=== PATIENT | male | born 1970 | race Native Hawaiian/Other Pacific Islander ===

== ENCOUNTER 2019-09-15 16:19 | Emergency (ER) | payer OTHER ==
[~2019-09-15] VITALS: Ht 177.8 cm; Wt 95.0 kg
[2019-09-15 16:52] VITALS: BP 144/66
== END 2019-09-15 17:36 | disposition home or self-care (01) ==
LOC: ER 16:19
DX: M25.462 Effusion, left knee (principal)
CPT/HCPCS: 73564; 99283

== ENCOUNTER 2020-06-10 15:06 | Emergency (ER) | payer OTHER ==
[~2020-06-10] VITALS: Ht 175.3 cm; Wt 90.0 kg
[2020-06-10 15:17] VITALS: BP 136/101
== END 2020-06-10 18:01 | disposition left against medical advice (07) ==
LOC: ER 15:07
DX: M79.605 Pain in left leg (principal); M79.604 Pain in right leg; Z53.21 Procedure and treatment not carried out due to patient leaving prior to being seen by health care provider

== ENCOUNTER 2020-06-24 16:21 | Emergency (ER) | payer SELFPAY ==
[~2020-06-24] VITALS: Ht 177.8 cm; Wt 100.0 kg
[2020-06-24 17:31] VITALS: BP 144/105
== END 2020-06-24 17:33 | disposition home or self-care (01) ==
LOC: ER 16:21
DX: R05 Cough (principal); I51.7 Cardiomegaly; F17.200 Nicotine dependence, unspecified, uncomplicated
CPT/HCPCS: 71045; 99283

== ENCOUNTER 2020-09-09 14:47 | Inpatient (IN) | payer MEDICAID ==
[~2020-09-09] VITALS: Ht 172.7 cm; Wt 90.5 kg
[~2020-09-09 14:47] MED LIST: etomidate 2mg/ml inj. ONE; rocuronium 10mg/ml inj IV ONE
[2020-09-09] MEDS ORDERED: TETanus/Pertussis (Acell)/Diphther VAC/PF (Tdap-Adult) 0.5ml syringe IMVAC ONE (15:35)
[2020-09-09 15:47] LABS: BASOPHILS % (AUTO) 0.1 % (0-1); EOSINOPHILS # (AUTO) 0.3 X10'3 (0-0.9); EOSINOPHILS % (AUTO) 1.2 % (0-6); HEMATOCRIT 37.6 % (42.0-52.0); HEMOGLOBIN 12.4 g/dl (14.0-17.9); LYMPHOCYTES # (AUTO) 0.9 X10'3 (1.1-4.8); LYMPHOCYTES % (AUTO) 3.9 % (21-51); MEAN CORPUSCULAR HEMOGLOBIN 27.5 PG (27.0-31.0); MEAN CORPUSCULAR HGB CONC 32.9 g/dL (33.0-36.5); MEAN CORPUSCULAR VOLUME 83.7 FL (78-98); MONOCYTES # (AUTO) 0.4 X10'3 (0-0.9); NEUTROPHILS # (AUTO) 21.1 X10'3 (1.8-7.7); NEUTROPHILS % (AUTO) 92.8 % (42-75); PLATELET COUNT 443 X10'3 (140-440); RED BLOOD COUNT 4.49 X10'6 (4.70-6.10); RED CELL DISTRIBUTION WIDTH 17.3 % (11.5-14.5); WHITE BLOOD COUNT 22.8 X10'3 (4.5-11.0)
[2020-09-09 16:01] LABS: PARTIAL THROMBOPLASTIN TIME 36 SECONDS (22-32)
[2020-09-09 16:03] LABS: ALANINE AMINOTRANSFERASE 45 U/L (12-78); ALBUMIN 2.1 G/DL (3.4-5.0); ALBUMIN/GLOBULIN RATIO 0.4 (1.1-1.5); ALKALINE PHOSPHATASE 238 IU/L (46-116); ANION GAP 11 (8-16); ASPARTATE AMINO TRANSFERASE 67 U/L (10-37); BILIRUBIN,TOTAL 3.1 MG/DL (0.1-1.0); BLOOD UREA NITROGEN 54 MG/DL (7-18); BUN/CREATININE RATIO 26.7 (5.4-32.0); CALCIUM 8.3 MG/DL (8.5-10.1); CHLORIDE 99 MMOL/L (99-107); CREATININE 2.02 MG/DL (0.60-1.10); GLUCOSE 130 MG/DL (70-104); POTASSIUM 4.6 MMOL/L (3.5-5.1); SODIUM 135 MMOL/L (135-145); TOTAL CARBON DIOXIDE 25.3 MMOL/L (24-32); TOTAL PROTEIN 7.4 G/DL (6.4-8.2); eGFR 35 ML/MIN
[2020-09-09 16:17] LABS: ANISOCYTOSIS 1+; PLATELET ESTIMATE INCREASED; TOTAL CELLS COUNTED 100
[2020-09-09 16:19] LABS: POLYCHROMASIA 1+
[2020-09-09 16:20] LABS: BURR CELLS 2+; ROULEAUX 1+; TARGET CELLS 1+; TOXIC GRANULATION 1+
[2020-09-09 16:22] LABS: SCHISTOCYTES 1+; TOXIC VACUOLATION FEW
[2020-09-09] MEDS ORDERED: vancomycin/NS 1 GM ADD-VANTAGE 250 ML IV ONE (16:40)
[2020-09-09] MEDS ORDERED: normal saline 1000ML IV soln IVB ONE (17:45)
--- NOTE | 2020-09-09 18:00 | NUR ---
PA AWARE OF PT'S HR AND BP. ORDERED AN EKG Addendum: 09/09/20 at 1801 by RWILCOX PT DENIES CP OR SOB
[2020-09-09] MEDS ORDERED: diltiazem 5mg/ml 5ml inj. IV ONE (18:45)
[2020-09-09] MEDS ORDERED: diltiazem-NS 100mg/100ml 125 ML IV PRN (19:10)
[2020-09-09] MEDS: diltiazem-NS 100mg/100ml 100 ML IV PRN (19:32)
--- NOTE | 2020-09-09 19:38 | NUR ---
PT SBP 98. HR 153 . MD AWARE. CARDIZEM BOLUS CANCELLED. Cardizem drip administered per protocol
[2020-09-09] MEDS ORDERED: potassium CL 10mEq/100ml bag 100 ML IV PRN ×2 (20:05)
[2020-09-09] MEDS ORDERED: magnesium hydroxide 30ml (MOM) UD suspension PO PRN (20:05)
[2020-09-09] MEDS ORDERED: magnesium 4gm in 100ml NS 100 ML IV PRN (20:05)
[2020-09-09] MEDS ORDERED: LORazepam 2 mg/ml vial IV PRN ×2 (20:05→22:15)
[2020-09-09] MEDS ORDERED: potassium Cl 20 mEq SR tablet PO PRN ×2 (20:05)
[2020-09-09] MEDS ORDERED: diltiazem-D5W 125mg/125ml 125 ML IV SCH (20:05)
[2020-09-09] MEDS ORDERED: HYDROcodone/acetaminophen 5mg/325mg tablet PO PRN (20:05)
[2020-09-09] MEDS ORDERED: mag hydrox/Alum hydrox/simeth 30ml oral suspension PO PRN (20:05)
[2020-09-09] MEDS ORDERED: normal saline 1000ml 1,000 ML IV SCH (20:05)
[2020-09-09] MEDS ORDERED: LORazepam 1 MG tablet PO PRN (20:05)
[2020-09-09] MEDS ORDERED: ondansetron/PF 4mg/2ml inj IV PRN (20:05)
[2020-09-09] MEDS ORDERED: morphine 2 MG/ML inj. syringe IV PRN (20:05)
[2020-09-09] MEDS ORDERED: magnesium 2GM in 50ml NS 50 ML IV PRN (20:05)
[2020-09-09] MEDS ORDERED: magnesium Cl slow-release 64mg tablet PO PRN (20:05)
[2020-09-09] MEDS ORDERED: acetaminophen 325mg tablet PO PRN ×2 (20:05)
--- NOTE | 2020-09-09 20:39 | NUR ---
relieved RN for break, pt is resting quietly on gurney, resp even and unlabored, increased cardizem gtt to 15mg/hr, HR is 130s to 150s on the monitor
[2020-09-09 21:00] VITALS: BP 134/117
[2020-09-09] MEDS ORDERED: temazepam 15mg capsule PO PRN (21:00)
[2020-09-09] MEDS ORDERED: glucagon, human recombinant 1mg kit SUBCUT PRN (21:10)
[2020-09-09] MEDS ORDERED: dextrose ORAL solution 15 GM/59 ML bottle PO PRN ×2 (21:10)
[2020-09-09] MEDS ORDERED: insulin Lispro (HumaLOG) vial - multi-dose SQ SCH (21:10)
[2020-09-09] MEDS ORDERED: dextrose 50%-water 50ml dispensing syringe IV PRN ×2 (21:10)
[2020-09-09] MEDS ORDERED: MESSAGE TO PHARMACY PO ONE (21:10)
--- NOTE | 2020-09-09 22:10 | NUR ---
PAGER ID: [phone] MESSAGE: [id number] Magdaleno You: Patient very impulsive and pulling on everything. Not safe at all. Can I have order for restraints please? Patient is already in sitter room and cannot handle. Stella NAVARRO [id number]
[2020-09-09] MEDS ORDERED: haloperidol lactate 5mg/ml inj IM PRN (22:15)
[2020-09-09] MEDS ORDERED: thiamine 100mg/ml 2ml inj. IV ONE (22:15)
[2020-09-09] MEDS ORDERED: haloperidol 5mg tablet PO PRN (22:15)
[2020-09-09 23:00] VITALS: BP 128/95
[2020-09-09] MEDS ORDERED: thiamine inj. 100 MG in normal saline 100ml IV soln 100 ML IV ONE (23:00)
[2020-09-10] VITALS (9 sets, daily range): BP systolic 97–130; BP diastolic 62–95
--- NOTE | 2020-09-10 00:15 | NUR ---
FAMILY CONTACT Concepción (MOM) lives in [place] , cell Chante Borden (aunt?) in [place]: [phone]
--- NOTE | 2020-09-10 00:20 | NUR ---
Allergy to Ativan? Ativan was given in ED, ED RN stated that patients started to get more confused and agitated after. Patient's face had progressively gotten more puffy and edematous. Family called in for an update, I asked if the patient had any allergies; patient's family member stated that he had taken an Ativan a couple weeks ago and remembered that his face was more puffy than usual. I relayed information to MD to proceed with possible Benadryl administration. Ativan to be discontinued as well.
--- NOTE | 2020-09-10 00:28 | NUR ---
promotional table spacer PAGER ID: [phone] MESSAGE: [id number] Magdaleno You: Possible Reaction to Ativan need an order for Benadryl. Ativan was given in ER. Family member now states that he often gets swollen in the face and body from Ativan. Stella NAVARRO [id number]
[2020-09-10] MEDS ORDERED: methylPREDNISolone sod succ 125mg/2ml vial IV ONE ×2 (00:35→21:35)
[2020-09-10] MEDS ORDERED: diphenhydrAMINE 50 mg/ml inj IV ONE (00:35)
[2020-09-10] MEDS ORDERED: cetirizine 10mg tablet PO ONE (00:35)
--- NOTE | 2020-09-10 01:24 | NUR ---
PAGER ID: [phone] MESSAGE: [id number] Magdaleno Avelino: Unable to swallow or cough on command. unable to give Zyrtec. Patient's O2 dropped to 80s, now on 2 L. Want to order anything else? Stella NAVARRO 2022
[2020-09-10] MEDS: diltiazem-NS 100mg/100ml 100 ML IV PRN (01:37)
[2020-09-10 01:51] LABS: ABG HCO3 17.6 mmol/L (22.0-26.0); ABG OXYGEN SATURATION 87.5 % (94-97); ABG PO2 (T) 60.6 mmHg (75.0-100.0); ALLEN'S TEST POSITIVE; FCOHb 0.3 % (0.0-3.9); FMetHb 0.3 % (0.0-1.5); PATIENT TEMPERATURE 36.6; TOTAL HEMOGLOBIN 12.6 G/dl (14.0-18.0)
--- NOTE | 2020-09-10 02:28 | NUR ---
PAGER ID: [phone] MESSAGE: [id number] Magdaleno You: Critical blood sugar 35, D50 given, now an hour later and the blood sugar is dropping again. Now 88. Can we order D5 in NS? or something else? Stella NAVARRO 0273
[2020-09-10] MEDS: dextrose 5%-normal saline 1,000 ML IV SCH ×2 (02:49→16:27)
[2020-09-10] MEDS ORDERED: vancomycin/NS 1 GM ADD-VANTAGE 250 ML IV SCH (05:00)
--- NOTE | 2020-09-10 07:01 | NUR ---
Patient in room PCU 3014. I have received report from Lyndsey NAVARRO by telephone from and had the opportunity to ask questions and assume patient care. Addendum: 09/10/20 at 0702 by Stella Coronado RN Report received at 2100
--- NOTE | 2020-09-10 07:02 | NUR ---
Problems reprioritized. Patient report given, questions answered & plan of care reviewed with Yasmeen NAVARRO.
--- NOTE | 2020-09-10 07:15 | NUR ---
Orientee documentation: I have reviewed and agree with all interventions, assessments performed and documented by Brandee Jacobs RN.
--- NOTE | 2020-09-10 07:16 | NUR ---
Orientee documentation: I have reviewed and agree with all interventions, assessments performed and documented by Willow NAVARRO.
--- NOTE | 2020-09-10 07:16 | NUR ---
Patient in room PCU 3014. I have received report from RAMON Zepeda and had the opportunity to ask questions and assume patient care. Patient asleep during report, stable vital signs.
[2020-09-10 07:24] LABS: BASOPHILS % (AUTO) 0.1 % (0-1); EOSINOPHILS # (AUTO) 0.1 X10'3 (0-0.9); EOSINOPHILS % (AUTO) 0.2 % (0-6); HEMATOCRIT 37.9 % (42.0-52.0); HEMOGLOBIN 12.2 g/dl (14.0-17.9); LYMPHOCYTES # (AUTO) 0.7 X10'3 (1.1-4.8); LYMPHOCYTES % (AUTO) 2.5 % (21-51); MEAN CORPUSCULAR HEMOGLOBIN 27.1 PG (27.0-31.0); MEAN CORPUSCULAR HGB CONC 32.1 g/dL (33.0-36.5); MEAN CORPUSCULAR VOLUME 84.5 FL (78-98); MEAN PLATELET VOLUME 8.2 FL (7.4-10.4); MONOCYTES # (AUTO) 0.2 X10'3 (0-0.9); MONOCYTES % (AUTO) 0.8 % (2-12); NEUTROPHILS # (AUTO) 28.1 X10'3 (1.8-7.7); NEUTROPHILS % (AUTO) 96.4 % (42-75); PLATELET COUNT 434 X10'3 (140-440); RED BLOOD COUNT 4.49 X10'6 (4.70-6.10); RED CELL DISTRIBUTION WIDTH 17.5 % (11.5-14.5)
[2020-09-10 07:31] LABS: WHITE BLOOD COUNT 29.2 X10'3 (4.5-11.0)
--- NOTE | 2020-09-10 07:36 | NUR ---
Page sent to Dr. Jimenez PAGER ID: [phone] MESSAGE: [id number] Magdaleno You Critical WBC of .2, on Emily Adan RN #[id number]
[2020-09-10] MEDS: K and/or MAG REPLACEMENT MC SCH ×2 (08:00→19:57)
[2020-09-10] MEDS: heparin, porcine 5000 units/ml vial SQ SCH ×2 (08:07→19:59)
[2020-09-10 08:35] LABS: ANISOCYTOSIS 1+; PLATELET ESTIMATE NORMAL; TOTAL CELLS COUNTED 100
[2020-09-10 09:31] LABS: ALANINE AMINOTRANSFERASE 52 U/L (12-78); ALBUMIN 2.1 G/DL (3.4-5.0); ALBUMIN/GLOBULIN RATIO 0.4 (1.1-1.5); ALKALINE PHOSPHATASE 246 IU/L (46-116); AMYLASE 33 U/L (25-115); ANION GAP 14 (8-16); ASPARTATE AMINO TRANSFERASE 102 U/L (10-37); BILIRUBIN,TOTAL 3.7 MG/DL (0.1-1.0); BLOOD UREA NITROGEN 58 MG/DL (7-18); BUN/CREATININE RATIO 27.4 (5.4-32.0); CALCIUM 7.9 MG/DL (8.5-10.1); CHLORIDE 100 MMOL/L (99-107); CREATININE 2.12 MG/DL (0.60-1.10); GLUCOSE 98 MG/DL (70-104); HDL CHOLESTEROL 9 MG/DL (35-60); LDL CHOLESTEROL 35 MG/DL (50-100); MAGNESIUM 2.6 MG/DL (1.5-2.4); POTASSIUM 4.8 MMOL/L (3.5-5.1); SODIUM 136 MMOL/L (135-145); TOTAL CARBON DIOXIDE 22.3 MMOL/L (24-32); TOTAL PROTEIN 7.8 G/DL (6.4-8.2); TRIGLYCERIDES 66 MG/DL (20-135); eGFR 33 ML/MIN
[2020-09-10 09:48] LABS: CHOLESTEROL < 50 MG/DL (0-200)
[2020-09-10] MEDS: haloperidol lactate 5mg/ml inj IM PRN ×2 (10:39→19:59)
--- NOTE | 2020-09-10 12:00 | NUR ---
at bedside, reviewed status, labs and urine output. 14 FR coude placed successfully. UA/Drug screen sent. Received new orders to stop Cardizem and obtain an ammonia level.
[2020-09-10 13:21] LABS: CLARITY,URINE CLOUDY (Clear); COLOR,URINE AMBER (Yellow); GLUCOSE, URINE NEGATIVE (Neg); KETONES,URINE NEGATIVE (Neg); LEUKOCYTE ESTERASE ,URINE NEGATIVE (Neg); NITRITES, URINE NEGATIVE (Neg); OCCULT BLOOD,URINE TRACE-LYSED (Neg); PROTEIN,URINE 30 mg/dl (Neg)
[2020-09-10 13:22] LABS: UA COLLECTION TYPE FOLEY CATH
[2020-09-10 13:28] LABS: URINE AMPHETAMINE SCREEN POSITIVE (Neg); URINE BARBITUATE SCREEN NEGATIVE (Neg); URINE BENZODIAZEPINES SCREEN NEGATIVE (Neg); URINE CANNABINOID SCREEN NEGATIVE (Neg); URINE COCAINE SCREEN NEGATIVE (Neg); URINE METHADONE SCREEN NEGATIVE (Neg); URINE OPIATE SCREEN NEGATIVE (Neg); URINE PHENCYCLIDINE SCREEN NEGATIVE (Neg)
[2020-09-10 13:30] LABS: HYALINE CASTS >30 /LPF (NEGATIVE)
[2020-09-10 13:35] LABS: FINE GRANULAR CAST 0-3 /LPF (NEGATIVE); SQUAMOUS EPITHELIAL CELL,UR FEW /LPF (FEW)
[2020-09-10 13:36] LABS: CAL OXALATE CRYSTALS FEW /HPF (NEGATIVE); MUCUS STRANDS MODERATE /LPF (Neg); TRANSITIONAL EPI CELLS,URINE FEW /HPF
[2020-09-10 13:37] LABS: RBC,URINE 0-2 /HPF (0-2); RENAL CELLS, URINE FEW /HPF; WBC,URINE 0-4 /HPF (0-4)
[2020-09-10 13:45] LABS: AMORPHOUS URATES 1+; BACTERIA,URINE NONE SEEN /HPF (Neg)
--- NOTE | 2020-09-10 13:55 | NUR ---
PAGER ID: [phone] MESSAGE: [id number] Magdaleno You. Ammonia WNL. Gf stated probable meth use. Got a list of home meds. Also, has technical planner Zonia. Do you want echo? Harini NAVARRO 7043
[2020-09-10] MEDS ORDERED: haloperidol lactate 5mg/ml inj IM ONE (14:45)
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
[2020-09-10] MEDS: piperacillin/tazo 3.375gm/50ml 50 ML IV SCH (16:26)
--- NOTE | 2020-09-10 18:23 | NUR ---
Patient in room PCU 3023. I have received report from RAMON Schuler and RAMON Irvin and had the opportunity to ask questions and assume patient care.
--- NOTE | 2020-09-10 18:24 | NUR ---
Problems reprioritized. Patient report given, questions answered & plan of care reviewed with RAMON Ferrara. Patient in bed with stable vitals at report.
--- NOTE | 2020-09-10 18:51 | NUR ---
Orientee documentation: I have reviewed and agree with all interventions, assessments performed and documented by Brandee Jacobs RN.
--- NOTE | 2020-09-10 18:52 | NUR ---
Orientee documentation: I have reviewed and agree with all interventions, assessments performed and documented by Brandee Jacobs RN.
[2020-09-10] MEDS ORDERED: furosemide 40mg/4ml inj IV SCH (20:00)
[2020-09-10] MEDS: nystatin 15 GM powder TP SCH (20:00)
[2020-09-10] MEDS: atorvastatin 20mg tablet PO SCH (20:00)
[2020-09-10] MEDS: insulin glargine (Lantus) pen - multi-dose SQ SCH (21:00)
[2020-09-10] MEDS ORDERED: chlordiazePOXIDE 25mg capsule PO PRN (21:45)
[2020-09-11] VITALS (17 sets, daily range): BP systolic 12–138; BP diastolic 71–96
[2020-09-11] MEDS: ipratropium/albuterol 3ml nebule NEB SCH ×7 (00:28→23:09)
[2020-09-11] MEDS: piperacillin/tazo 3.375gm/50ml 50 ML IV SCH ×3 (00:35→15:46)
[2020-09-11] MEDS: methylPREDNISolone sod succ 125mg/2ml vial IV SCH ×4 (01:46→19:58)
[2020-09-11] MEDS: vancomycin/NS 1 GM ADD-VANTAGE 250 ML IV SCH (05:19)
[2020-09-11] MEDS: dextrose 5%-normal saline 1,000 ML IV SCH ×2 (05:19→23:06)
--- NOTE | 2020-09-11 06:09 | NUR ---
Problems reprioritized. Patient report given, questions answered & plan of care reviewed with RAMON Schuler and RAMON Irvin.
--- NOTE | 2020-09-11 07:18 | NUR ---
Patient in room PCU 3023. I have received report from RAMON Ferrara and had the opportunity to ask questions and assume patient care.
--- NOTE | 2020-09-11 07:18 | NUR ---
PAGER ID: [phone] MESSAGE: [id number] Magdaleno You HR anywhere from 30's-160's with frequent pauses. Sustaining 160's currently. Harini NAVARRO [id number]
--- NOTE | 2020-09-11 07:42 | NUR ---
PAGER ID: [phone] MESSAGE: [id number] Magdaleno You - is now 74/48, HR 160's. Harini NAVARRO [id number]
[2020-09-11] MEDS ORDERED: normal saline 500ml IV soln 500 ML IV ONE (07:45)
[2020-09-11] MEDS: heparin, porcine 5000 units/ml vial SQ SCH ×2 (07:46→19:57)
--- NOTE | 2020-09-11 07:58 | NUR ---
PAGER ID: [phone] MESSAGE: [id number] Magdaleno You, I am calling a rapid. BP dropping, restless and thrashing around. Harini NAVARRO 2938
[2020-09-11] MEDS ORDERED: metoprolol tartrate 25mg tablet PO SCH (08:00)
[2020-09-11] MEDS: atorvastatin 20mg tablet PO SCH (08:00)
[2020-09-11] MEDS ORDERED: furosemide 40mg/4ml inj IV SCH (08:00)
[2020-09-11] MEDS: K and/or MAG REPLACEMENT MC SCH ×2 (08:00→20:00)
[2020-09-11] MEDS ORDERED: lisinopril 5mg tablet PO SCH (08:00)
[2020-09-11] MEDS: nystatin 15 GM powder TP SCH ×2 (08:00→19:58)
--- NOTE | 2020-09-11 08:13 | NUR ---
Paged Dr Jimenez PAGER ID: [phone] MESSAGE: Julissa WOODARD. Mellisa Otoole [id number]. FYI patient is currently being transferred to CICU post rapid. Primary RN Harini transferring pt at this time
[2020-09-11] MEDS ORDERED: MIDAZolam 5mg/ml 2ml vial ONE ×2 (08:17→08:21)
[2020-09-11] MEDS ORDERED: NORepinephrine 8mg/ 250ml NS 250 ML IV ONE (08:30)
--- NOTE | 2020-09-11 08:42 | NUR ---
PAGER ID: [phone] MESSAGE: [id number] Magdaleno You intubated and in ICU, Harini NAVARRO 4728
--- NOTE | 2020-09-11 08:43 | NUR ---
Upon assessment, HR is 160's, sp02 91%, BP 74/48 manually. Patient was thrashing around, grunting and frothing from the mouth. Patients cognition is unchanged from prior day, responds to verbal stimuli. MD notified immediately with orders to bolus 500 ml's. Bolus initiated, reassessment of BP 5 minutes after initial bolus and BP decreased with a MAP of 40. RR called. Patient taken to ICU and intubated at bedside. Dr. Jimenez alerted. Bedside report given to ICU charge Charissa and Primary nurse Marge.
[2020-09-11] MEDS ORDERED: amiodarone 150mg/dext, iso-os 100 ML IV ONE (08:50)
--- NOTE | 2020-09-11 08:53 | NUR ---
Called to update patients contacts of change of condition, left a message for his girlfriend Chante and his mom Solomon.
[2020-09-11] MEDS ORDERED: FENTANYL-0.9 % NACL/PF 100 ML IV PRN (08:55)
[2020-09-11] MEDS ORDERED: midazolam 100mg in NS 100ml 100 ML IV PRN (08:55)
[2020-09-11] MEDS ORDERED: midazolam 100mg in NS 100ml 100 ML IV ONE (08:56)
[2020-09-11] MEDS ORDERED: FENTANYL-0.9 % NACL/PF 100 ML ONE (08:56)
[2020-09-11 09:16] LABS: ABG BASE EXCESS -7.8 mmol/L (-2.0-2.0); ABG HCO3 19.4 mmol/L (22.0-26.0); ABG OXYGEN SATURATION 98.3 % (94-97); ABG PCO2 (T) 43.6 mmHg (35.0-48.0); ABG PO2 (T) 133.6 mmHg (75.0-100.0); FCOHb 0.2 % (0.0-3.9); FMetHb 0.4 % (0.0-1.5); FO2Hb 97.7 % (94-97); PATIENT TEMPERATURE 35.8; PEEP 5 cm H2O; RESPIRATORY RATE 18 b/min; TIDAL VOLUME 529 mL; TOTAL HEMOGLOBIN 14.5 G/dl (14.0-18.0)
[2020-09-11 09:27] LABS: BASOPHILS # (AUTO) 0.1 X10'3 (0-0.2); BASOPHILS % (AUTO) 0.2 % (0-1); EOSINOPHILS % (AUTO) 0.1 % (0-6); HEMATOCRIT 41.9 % (42.0-52.0); HEMOGLOBIN 13.1 g/dl (14.0-17.9); LYMPHOCYTES # (AUTO) 0.9 X10'3 (1.1-4.8); LYMPHOCYTES % (AUTO) 3.1 % (21-51); MEAN CORPUSCULAR HEMOGLOBIN 26.4 PG (27.0-31.0); MEAN CORPUSCULAR HGB CONC 31.3 g/dL (33.0-36.5); MEAN CORPUSCULAR VOLUME 84.4 FL (78-98); MEAN PLATELET VOLUME 8.1 FL (7.4-10.4); MONOCYTES # (AUTO) 0.4 X10'3 (0-0.9); MONOCYTES % (AUTO) 1.4 % (2-12); NEUTROPHILS # (AUTO) 27.1 X10'3 (1.8-7.7); NEUTROPHILS % (AUTO) 95.2 % (42-75); PLATELET COUNT 548 X10'3 (140-440); RED BLOOD COUNT 4.96 X10'6 (4.70-6.10); RED CELL DISTRIBUTION WIDTH 18.1 % (11.5-14.5)
[2020-09-11 09:28] LABS: WHITE BLOOD COUNT 28.5 X10'3 (4.5-11.0)
[2020-09-11 09:44] LABS: ALANINE AMINOTRANSFERASE 49 U/L (12-78); ALBUMIN/GLOBULIN RATIO 0.3 (1.1-1.5); ALKALINE PHOSPHATASE 208 IU/L (46-116); AMYLASE 49 U/L (25-115); ANION GAP 14 (8-16); ASPARTATE AMINO TRANSFERASE 54 U/L (10-37); BILIRUBIN,TOTAL 2.4 MG/DL (0.1-1.0); BLOOD UREA NITROGEN 69 MG/DL (7-18); BUN/CREATININE RATIO 40.4 (5.4-32.0); CALCIUM 7.6 MG/DL (8.5-10.1); CHLORIDE 104 MMOL/L (99-107); CREATININE 1.71 MG/DL (0.60-1.10); GLUCOSE 193 MG/DL (70-104); MAGNESIUM 2.8 MG/DL (1.5-2.4); PHOSPHORUS 6.8 MG/DL (2.3-4.5); POTASSIUM 4.7 MMOL/L (3.5-5.1); SODIUM 139 MMOL/L (135-145); TOTAL CARBON DIOXIDE 20.6 MMOL/L (24-32); TOTAL PROTEIN 7.8 G/DL (6.4-8.2); eGFR 42 ML/MIN
--- NOTE | 2020-09-11 09:57 | NUR ---
Problems reprioritized. Patient report given, questions answered & plan of care reviewed with RAMON Bird.
[2020-09-11 10:00] LABS: ANISOCYTOSIS 2+; NUCLEATED RED BLOOD CELLS 1 /100WBC (0-0); PLATELET ESTIMATE INCREASED; TOTAL CELLS COUNTED 100
[2020-09-11] MEDS ORDERED: ATOR40TA72 PO (10:48)
[2020-09-11] MEDS ORDERED: LISI-604 PO (10:48)
[2020-09-11] MEDS ORDERED: SPIR25TA5 PO (10:48)
[2020-09-11] MEDS ORDERED: METO-395 PO (10:48)
[2020-09-11] MEDS: FENTANYL-0.9 % NACL/PF 100 ML IV PRN ×2 (10:57→23:41)
[2020-09-11] MEDS: midazolam 100mg in NS 100ml 100 ML IV PRN ×2 (10:57→15:46)
[2020-09-11] MEDS: NORepinephrine 8mg/ 250ml NS 250 ML IV SCH ×3 (11:00→19:26)
[2020-09-11] MEDS: thiamine inj. 100 MG, MVI, adult No.4 with vit. K 10 ML in dextrose 5% water 500ml 489 ML IV SCH ×6 (11:11→12:11)
[2020-09-11] MEDS: amiodarone/D5 360MG/200ML BAG 200 ML IV SCH ×3 (11:11→21:08)
--- NOTE | 2020-09-11 13:01 | NUR ---
TF consult: Pt s/p rapid response this morning, now intubated. OG tube in place per RN. Recommendations below were calculated using IBW +10% given morbid obesity. Pt with hx CHF, with a low EF per RN at critical care rounds, water flush recommendations per MD. Pt receiving banana bag for EtOH hx. Will continue to follow closely and make recommendations as appropriate. Recs: 1) Continuous TF using Vital High Protein with goal rate of 80 mL/hr. To begin at 20 mL/hr and advance by 20 mL Q8H as tolerated to goal rate. To provide: 1920 mL total volume/day, 1920 kcal, 168 g protein, and 1605 mL water 2) Additional water flush per MD 3) Prealbumin q Thursday/, daily weights 4) Continue banana bag given EtOH hx 5) PO diet advancement to heart healthy CHO controlled as medically indicated following extubation 6) DM and protein educations once stable Addendum: 09/11/20 at [address] Amended: Links added.
[2020-09-11] MEDS ORDERED: ondansetron 4mg rapidly disintigrating tab PO PRN (14:05)
[2020-09-11] MEDS ORDERED: acetaminophen 325mg/10.15ml oral unit dose solution OGT PRN ×2 (14:47→14:48)
[2020-09-11] MEDS ORDERED: chlordiazePOXIDE 25mg capsule OGT PRN (14:49)
[2020-09-11] MEDS ORDERED: dextrose ORAL solution 15 GM/59 ML bottle OGT PRN ×2 (14:50)
[2020-09-11] MEDS ORDERED: mag hydrox/Alum hydrox/simeth 30ml oral suspension OGT PRN (14:50)
[2020-09-11] MEDS ORDERED: magnesium hydroxide 30ml (MOM) UD suspension OGT PRN (14:51)
[2020-09-11] MEDS ORDERED: ondansetron 4mg rapidly disintigrating tab OGT PRN (14:52)
[2020-09-11] MEDS ORDERED: POTASSIUM BICARB 20meq eff tab 20 MEQ TABLET.EFF OGT PRN ×2 (14:52→14:53)
[2020-09-11] MEDS ORDERED: temazepam 15mg capsule OGT PRN (14:53)
[2020-09-11] MEDS ORDERED: aspirin 81mg tab.chew OGT ONE (16:25)
[2020-09-11 16:43] LABS: HIV ANTIBODY 1&2 RAPID NON-REACTIVE (Neg)
--- NOTE | 2020-09-11 17:00 | NUR ---
PER DR CRYSTAL PERKINS EMERGENT PICC LINE PTS IJ CENTRAL LINE WAS ACCIDENTALLY PULLED OUT DURING TRANSFER TO CT TABLE. PICC PLACED EMERGENTLY, CHEST X-RAY CONFIRMATION. Wayne MEJIA PICC RAMON REF: [id number] LOT: [id number] EXP: 08/15/2021
--- NOTE | 2020-09-11 18:30 | NUR ---
Patient in room CICU 2009. I have received report from RAMON Bird and had the opportunity to ask questions and assume patient care.
--- NOTE | 2020-09-11 18:32 | NUR ---
Problems reprioritized. Patient report given, questions answered & plan of care reviewed with RAMON Arias.
[2020-09-11] MEDS: lactobacillus rhamnosus 10,000 MMU CELLS/CAPSULE OGT SCH (19:58)
[2020-09-11] MEDS: insulin regular, human U-100 3ml vial - multi-dose SQ SCH (20:38)
[2020-09-11] MEDS: insulin glargine (Lantus) pen - multi-dose SQ SCH (21:29)
[2020-09-11] MEDS ORDERED: LORazepam 2 mg/ml vial IV PRN (22:15)
[2020-09-11] MEDS ORDERED: LORazepam 1 MG tablet PO PRN (22:15)
--- NOTE | 2020-09-11 23:07 | NUR ---
Notified Dwayne Calhoun NP that patient is not making urine. Informed that patient has CHF with EF of 25%. Patient with CVP of 25. Order of lasix was received. Will give and continue to monitor.
[2020-09-11] MEDS ORDERED: furosemide 40mg/4ml inj IV ONE (23:10)
[2020-09-12] VITALS (24 sets, daily range): BP systolic 99–115; BP diastolic 76–89
[2020-09-12] MEDS: piperacillin/tazo 3.375gm/50ml 50 ML IV SCH ×3 (00:27→17:12)
[2020-09-12] MEDS: methylPREDNISolone sod succ 125mg/2ml vial IV SCH ×4 (01:43→20:42)
[2020-09-12] MEDS: insulin regular, human U-100 3ml vial - multi-dose SQ SCH ×4 (01:48→20:52)
[2020-09-12 02:24] LABS: BASOPHILS # (AUTO) 0.1 X10'3 (0-0.2); BASOPHILS % (AUTO) 0.4 % (0-1); EOSINOPHILS % (AUTO) 0 % (0-6); HEMATOCRIT 40.8 % (42.0-52.0); LYMPHOCYTES # (AUTO) 0.6 X10'3 (1.1-4.8); LYMPHOCYTES % (AUTO) 2.9 % (21-51); MEAN CORPUSCULAR HGB CONC 31.8 g/dL (33.0-36.5); MEAN CORPUSCULAR VOLUME 84.8 FL (78-98); MEAN PLATELET VOLUME 8.3 FL (7.4-10.4); MONOCYTES # (AUTO) 0.6 X10'3 (0-0.9); MONOCYTES % (AUTO) 2.8 % (2-12); NEUTROPHILS # (AUTO) 19.5 X10'3 (1.8-7.7); NEUTROPHILS % (AUTO) 93.9 % (42-75); PLATELET COUNT 555 X10'3 (140-440); RED BLOOD COUNT 4.81 X10'6 (4.70-6.10); RED CELL DISTRIBUTION WIDTH 17.5 % (11.5-14.5); WHITE BLOOD COUNT 20.8 X10'3 (4.5-11.0)
[2020-09-12 02:40] LABS: CHLORIDE 104 MMOL/L (99-107); GLUCOSE 212 MG/DL (70-104); POTASSIUM 4.8 MMOL/L (3.5-5.1); SODIUM 137 MMOL/L (135-145)
[2020-09-12 02:41] LABS: ALANINE AMINOTRANSFERASE 41 U/L (12-78); ALBUMIN 1.9 G/DL (3.4-5.0); ALBUMIN/GLOBULIN RATIO 0.3 (1.1-1.5); ALKALINE PHOSPHATASE 188 IU/L (46-116); AMYLASE 539 U/L (25-115); ANION GAP 10 (8-16); ASPARTATE AMINO TRANSFERASE 33 U/L (10-37); BILIRUBIN,TOTAL 1.8 MG/DL (0.1-1.0); BLOOD UREA NITROGEN 77 MG/DL (7-18); BUN/CREATININE RATIO 41.2 (5.4-32.0); CALCIUM 7.3 MG/DL (8.5-10.1); CREATININE 1.87 MG/DL (0.60-1.10); PHOSPHORUS 6.5 MG/DL (2.3-4.5); TOTAL PROTEIN 7.7 G/DL (6.4-8.2); eGFR 38 ML/MIN
[2020-09-12] MEDS: ipratropium/albuterol 3ml nebule NEB SCH ×6 (02:52→23:10)
[2020-09-12] MEDS: amiodarone/D5 360MG/200ML BAG 200 ML IV SCH ×4 (03:47→21:24)
[2020-09-12] MEDS: NORepinephrine 8mg/ 250ml NS 250 ML IV SCH (03:48)
[2020-09-12 04:50] LABS: ABG BASE EXCESS -4.8 mmol/L (-2.0-2.0); ABG HCO3 19.6 mmol/L (22.0-26.0); ABG PCO2 (T) 33.8 mmHg (35.0-48.0); ABG PO2 (T) 115.3 mmHg (75.0-100.0); FCOHb 0.1 % (0.0-3.9); FMetHb 0.4 % (0.0-1.5); FO2Hb 97.5 % (94-97); PATIENT TEMPERATURE 36.6; PEEP 5 cm H2O; RESPIRATORY RATE 20 b/min; TIDAL VOLUME 500 mL; TOTAL HEMOGLOBIN 14.1 G/dl (14.0-18.0)
[2020-09-12] MEDS: vancomycin/NS 1 GM ADD-VANTAGE 250 ML IV SCH (05:23)
--- NOTE | 2020-09-12 06:44 | NUR ---
Problems reprioritized. Patient report given, questions answered & plan of care reviewed with RAMON Mann.
[2020-09-12] MEDS: lactobacillus rhamnosus 10,000 MMU CELLS/CAPSULE OGT SCH ×2 (07:52→20:41)
[2020-09-12] MEDS: thiamine inj. 100 MG, MVI, adult No.4 with vit. K 10 ML in dextrose 5% water 500ml 489 ML IV SCH ×3 (07:52)
[2020-09-12] MEDS: atorvastatin 20mg tablet OGT SCH (07:53)
[2020-09-12] MEDS: nystatin 15 GM powder TP SCH ×2 (07:53→20:42)
[2020-09-12] MEDS: heparin, porcine 5000 units/ml vial SQ SCH ×2 (07:53→20:39)
[2020-09-12] MEDS: metoprolol tartrate 25mg tablet OGT SCH (07:53)
[2020-09-12] MEDS: lisinopril 5mg tablet OGT SCH (08:00)
--- NOTE | 2020-09-12 08:00 | NUR ---
CHEST X-RAY READ SHOWS PICC IN RIGHT ATRIUM. LORI RN NOTIFIED TO PLEASE PULL LINE BACK 3 CM. Wayne MEJIA PICC RAMON
[2020-09-12] MEDS: K and/or MAG REPLACEMENT MC SCH ×2 (09:04→20:00)
[2020-09-12] MEDS ORDERED: furosemide inj 100 ML IV SCH ×2 (10:15→18:45)
[2020-09-12 11:22] LABS: HBSAG SCREEN Negative (Negative); HEP A AB, IGM Negative (Negative); HEPATITIS C ANTIBODY 3.1 s/co ratio (0.0-0.9)
[2020-09-12] MEDS: furosemide 1,000 MG in NS 250ml IV soln IV SCH ×2 (11:23→20:08)
[2020-09-12] MEDS: mineral oil/petrolatum ophthal oint EACHEYE SCH ×2 (14:46→20:42)
--- NOTE | 2020-09-12 18:30 | NUR ---
Patient in room CICU 2009. I have received report from RAMON Mann and had the opportunity to ask questions and assume patient care.
[2020-09-12] MEDS: midazolam 100mg in NS 100ml 100 ML IV PRN (18:56)
[2020-09-12] MEDS: dextrose 5%-normal saline 1,000 ML IV SCH (19:06)
--- NOTE | 2020-09-12 19:23 | NUR ---
Problems reprioritized. Patient report given, questions answered & plan of care reviewed with Juana NAVARRO. Dr. Kern called regarding lasix drip being cancelled this am after it was started. After investigation it looks as if anjel cancelled lasix drip soon after it was started. Dr. Kern did not cancel the lasix gt and it was re ordered.
[2020-09-12] MEDS: insulin glargine (Lantus) pen - multi-dose SQ SCH (20:54)
[2020-09-12] MEDS ORDERED: [UNRECOGNIZED DRUG - REMARK] IV SCH ×3 (23:38)
[2020-09-13] VITALS (25 sets, daily range): BP systolic 94–113; BP diastolic 61–84
[2020-09-13] MEDS: piperacillin/tazo 3.375gm/50ml 50 ML IV SCH ×4 (00:24→23:49)
[2020-09-13] MEDS: FENTANYL-0.9 % NACL/PF 100 ML IV PRN (00:24)
[2020-09-13 00:41] LABS: BASOPHILS # (AUTO) 0.2 X10'3 (0-0.2); EOSINOPHILS % (AUTO) 0 % (0-6); HEMATOCRIT 39.5 % (42.0-52.0); HEMOGLOBIN 12.8 g/dl (14.0-17.9); LYMPHOCYTES # (AUTO) 0.5 X10'3 (1.1-4.8); LYMPHOCYTES % (AUTO) 2.2 % (21-51); MEAN CORPUSCULAR HEMOGLOBIN 27.5 PG (27.0-31.0); MEAN CORPUSCULAR HGB CONC 32.3 g/dL (33.0-36.5); MEAN CORPUSCULAR VOLUME 85.1 FL (78-98); MEAN PLATELET VOLUME 7.8 FL (7.4-10.4); MONOCYTES # (AUTO) 0.5 X10'3 (0-0.9); MONOCYTES % (AUTO) 2.4 % (2-12); NEUTROPHILS # (AUTO) 19.9 X10'3 (1.8-7.7); NEUTROPHILS % (AUTO) 94.4 % (42-75); PLATELET COUNT 474 X10'3 (140-440); RED BLOOD COUNT 4.65 X10'6 (4.70-6.10); RED CELL DISTRIBUTION WIDTH 17.5 % (11.5-14.5); WHITE BLOOD COUNT 21.1 X10'3 (4.5-11.0)
[2020-09-13 00:55] LABS: ALANINE AMINOTRANSFERASE 37 U/L (12-78); ALBUMIN/GLOBULIN RATIO 0.4 (1.1-1.5); ALKALINE PHOSPHATASE 162 IU/L (46-116); ANION GAP 12 (8-16); ASPARTATE AMINO TRANSFERASE 40 U/L (10-37); BILIRUBIN,TOTAL 1.4 MG/DL (0.1-1.0); BLOOD UREA NITROGEN 96 MG/DL (7-18); BUN/CREATININE RATIO 41.2 (5.4-32.0); CALCIUM 7.5 MG/DL (8.5-10.1); CHLORIDE 105 MMOL/L (99-107); CREATININE 2.33 MG/DL (0.60-1.10); GLUCOSE 193 MG/DL (70-104); MAGNESIUM 3.1 MG/DL (1.5-2.4); PHOSPHORUS 6.5 MG/DL (2.3-4.5); PREALBUMIN 10.9 MG/DL (19-36); SODIUM 140 MMOL/L (135-145); TOTAL CARBON DIOXIDE 22.8 MMOL/L (24-32); TOTAL PROTEIN 7.5 G/DL (6.4-8.2); eGFR 30 ML/MIN
--- NOTE | 2020-09-13 01:00 | NUR ---
Patient is on lasix drip and not putting out urine. Slater catheter had to be changed to new one after several attempts of flushing on 09/12. Several attempts were made to flush this catheter and was unsuccessful. This slater was pulled out and new slater was placed. 325mL of urine was drained out. Patient has a lot of sediment, will flush slater q1h to attempt to prevent clogging slater.
[2020-09-13] MEDS: methylPREDNISolone sod succ 125mg/2ml vial IV SCH ×4 (02:12→20:47)
[2020-09-13] MEDS: insulin regular, human U-100 3ml vial - multi-dose SQ SCH ×4 (02:23→20:21)
[2020-09-13] MEDS: amiodarone/D5 360MG/200ML BAG 200 ML IV SCH ×3 (02:23→14:35)
[2020-09-13] MEDS: mineral oil/petrolatum ophthal oint EACHEYE SCH ×4 (02:24→20:49)
[2020-09-13] MEDS: ipratropium/albuterol 3ml nebule NEB SCH ×6 (03:12→23:06)
[2020-09-13 04:10] LABS: ABG HCO3 18.7 mmol/L (22.0-26.0); ABG PCO2 (T) 33.5 mmHg (35.0-48.0); ABG PO2 (T) 81.4 mmHg (75.0-100.0); FCOHb 0.6 % (0.0-3.9); FMetHb 0.2 % (0.0-1.5); FO2Hb 94.2 % (94-97); PATIENT TEMPERATURE 36.4; PEEP 5 cm H2O; RESPIRATORY RATE 20 b/min; TIDAL VOLUME 500 mL
[2020-09-13] MEDS ORDERED: VANCOMYCIN LEVEL IV ONE (04:30)
[2020-09-13] MEDS: vancomycin/NS 1 GM ADD-VANTAGE 250 ML IV SCH (05:17)
--- NOTE | 2020-09-13 06:22 | NUR ---
Problems reprioritized. Patient report given, questions answered & plan of care reviewed with RAMON Mann.
[2020-09-13 07:54] LABS: ALBUMIN 1.9 G/DL (3.4-5.0); ANION GAP 8 (8-16); BLOOD UREA NITROGEN 94 MG/DL (7-18); BUN/CREATININE RATIO 40.7 (5.4-32.0); CALCIUM 7.5 MG/DL (8.5-10.1); CHLORIDE 106 MMOL/L (99-107); CREATININE 2.31 MG/DL (0.60-1.10); GLUCOSE 183 MG/DL (70-104); PHOSPHORUS 5.9 MG/DL (2.3-4.5); POTASSIUM 4.6 MMOL/L (3.5-5.1); SODIUM 138 MMOL/L (135-145); TOTAL CARBON DIOXIDE 24.3 MMOL/L (24-32); eGFR 30 ML/MIN
[2020-09-13] MEDS: lisinopril 5mg tablet OGT SCH (08:00)
[2020-09-13] MEDS: K and/or MAG REPLACEMENT MC SCH ×2 (08:00→20:00)
[2020-09-13] MEDS: NORepinephrine 8mg/ 250ml NS 250 ML IV SCH (08:52)
[2020-09-13] MEDS: thiamine inj. 100 MG, MVI, adult No.4 with vit. K 10 ML in dextrose 5% water 500ml 500 ML IV SCH ×3 (08:53)
[2020-09-13] MEDS: heparin, porcine 5000 units/ml vial SQ SCH ×2 (08:53→20:48)
[2020-09-13] MEDS: lactobacillus rhamnosus 10,000 MMU CELLS/CAPSULE OGT SCH ×2 (08:54→20:48)
[2020-09-13] MEDS: mineral oil/petrolatum, white cream 113gm jar TP SCH (08:54)
[2020-09-13] MEDS: atorvastatin 20mg tablet OGT SCH (08:54)
[2020-09-13] MEDS: metoprolol tartrate 25mg tablet OGT SCH (08:54)
[2020-09-13] MEDS: nystatin 15 GM powder TP SCH ×2 (08:55→20:49)
[2020-09-13] MEDS: pantoprazole 40 MG vial IV SCH (13:36)
[2020-09-13] MEDS: dextrose 5%-normal saline 1,000 ML IV SCH (14:19)
[2020-09-13 15:06] LABS: ANION GAP 12 (8-16); BLOOD UREA NITROGEN 97 MG/DL (7-18); BUN/CREATININE RATIO 43.9 (5.4-32.0); CALCIUM 7.6 MG/DL (8.5-10.1); CHLORIDE 104 MMOL/L (99-107); CREATININE 2.21 MG/DL (0.60-1.10); GLUCOSE 182 MG/DL (70-104); MAGNESIUM 2.7 MG/DL (1.5-2.4); PHOSPHORUS 5.1 MG/DL (2.3-4.5); POTASSIUM 4.4 MMOL/L (3.5-5.1); SODIUM 142 MMOL/L (135-145); TOTAL CARBON DIOXIDE 26.5 MMOL/L (24-32); eGFR 32 ML/MIN
--- NOTE | 2020-09-13 18:18 | NUR ---
I have reviewed and agree with all medications administered and interventions performed by [facility] Student(greg arevalo)
--- NOTE | 2020-09-13 18:28 | NUR ---
Problems reprioritized. Patient report given, questions answered & plan of care reviewed with Mac RN.
[2020-09-13] MEDS: midazolam 100mg in NS 100ml 100 ML IV PRN (20:19)
[2020-09-13] MEDS: insulin glargine (Lantus) pen - multi-dose SQ SCH (20:23)
[2020-09-13 20:50] LABS: ANION GAP 9 (8-16); BLOOD UREA NITROGEN 95 MG/DL (7-18); BUN/CREATININE RATIO 41.9 (5.4-32.0); CALCIUM 7.8 MG/DL (8.5-10.1); CHLORIDE 105 MMOL/L (99-107); CREATININE 2.27 MG/DL (0.60-1.10); GLUCOSE 150 MG/DL (70-104); MAGNESIUM 2.6 MG/DL (1.5-2.4); PHOSPHORUS 4.7 MG/DL (2.3-4.5); SODIUM 143 MMOL/L (135-145); TOTAL CARBON DIOXIDE 29.1 MMOL/L (24-32); eGFR 31 ML/MIN
[2020-09-13] MEDS ORDERED: LORazepam 2 mg/ml vial IV PRN (22:15)
[2020-09-13] MEDS ORDERED: LORazepam 1 MG tablet PO PRN (22:15)
[2020-09-14] VITALS (23 sets, daily range): BP systolic 93–116; BP diastolic 58–81
[2020-09-14] MEDS: insulin regular, human U-100 3ml vial - multi-dose SQ SCH ×4 (02:34→21:31)
[2020-09-14] MEDS: ipratropium/albuterol 3ml nebule NEB SCH ×6 (02:37→22:55)
[2020-09-14] MEDS: methylPREDNISolone sod succ 125mg/2ml vial IV SCH ×2 (02:46→07:44)
[2020-09-14] MEDS: mineral oil/petrolatum ophthal oint EACHEYE SCH ×4 (02:47→21:11)
[2020-09-14] MEDS: FENTANYL-0.9 % NACL/PF 100 ML IV PRN (02:47)
[2020-09-14] MEDS: amiodarone/D5 360MG/200ML BAG 200 ML IV SCH ×5 (02:47→21:56)
[2020-09-14 03:01] LABS: BASOPHILS # (AUTO) 0.1 X10'3 (0-0.2); BASOPHILS % (AUTO) 0.3 % (0-1); EOSINOPHILS % (AUTO) 0 % (0-6); HEMOGLOBIN 12.4 g/dl (14.0-17.9); LYMPHOCYTES # (AUTO) 0.2 X10'3 (1.1-4.8); LYMPHOCYTES % (AUTO) 0.8 % (21-51); MEAN CORPUSCULAR HEMOGLOBIN 27.1 PG (27.0-31.0); MEAN CORPUSCULAR HGB CONC 32.7 g/dL (33.0-36.5); MEAN CORPUSCULAR VOLUME 82.9 FL (78-98); MEAN PLATELET VOLUME 7.9 FL (7.4-10.4); MONOCYTES # (AUTO) 0.6 X10'3 (0-0.9); MONOCYTES % (AUTO) 2.7 % (2-12); NEUTROPHILS # (AUTO) 22.3 X10'3 (1.8-7.7); NEUTROPHILS % (AUTO) 96.2 % (42-75); PLATELET COUNT 447 X10'3 (140-440); RED BLOOD COUNT 4.58 X10'6 (4.70-6.10); RED CELL DISTRIBUTION WIDTH 17.4 % (11.5-14.5); WHITE BLOOD COUNT 23.2 X10'3 (4.5-11.0)
[2020-09-14 03:13] LABS: ALANINE AMINOTRANSFERASE 32 U/L (12-78); ALBUMIN/GLOBULIN RATIO 0.4 (1.1-1.5); ALKALINE PHOSPHATASE 161 IU/L (46-116); ANION GAP 7 (8-16); ASPARTATE AMINO TRANSFERASE 27 U/L (10-37); BILIRUBIN,TOTAL 1.5 MG/DL (0.1-1.0); BLOOD UREA NITROGEN 93 MG/DL (7-18); BUN/CREATININE RATIO 43.5 (5.4-32.0); CALCIUM 7.9 MG/DL (8.5-10.1); CHLORIDE 105 MMOL/L (99-107); CREATININE 2.14 MG/DL (0.60-1.10); GLUCOSE 166 MG/DL (70-104); MAGNESIUM 2.4 MG/DL (1.5-2.4); PHOSPHORUS 3.9 MG/DL (2.3-4.5); POTASSIUM 3.7 MMOL/L (3.5-5.1); SODIUM 142 MMOL/L (135-145); TOTAL CARBON DIOXIDE 29.7 MMOL/L (24-32); TOTAL PROTEIN 7.4 G/DL (6.4-8.2); eGFR 33 ML/MIN
[2020-09-14 04:25] LABS: ABG BASE EXCESS 1.4 mmol/L (-2.0-2.0); ABG HCO3 22.2 mmol/L (22.0-26.0); ABG OXYGEN SATURATION 98.2 % (94-97); ABG PCO2 (T) 24.1 mmHg (35.0-48.0); ABG PO2 (T) 115.5 mmHg (75.0-100.0); FCOHb 0.1 % (0.0-3.9); FMetHb 0.2 % (0.0-1.5); FO2Hb 97.9 % (94-97); PATIENT TEMPERATURE 36.6; PEEP 5 cm H2O; RESPIRATORY RATE 20 b/min; TIDAL VOLUME 500 mL; TOTAL HEMOGLOBIN 11.4 G/dl (14.0-18.0)
[2020-09-14] MEDS: NORepinephrine 8mg/ 250ml NS 250 ML IV SCH (05:42)
[2020-09-14] MEDS: vancomycin/NS 1 GM ADD-VANTAGE 250 ML IV SCH (06:48)
[2020-09-14] MEDS: furosemide 1,000 MG in NS 250ml IV soln IV SCH (06:50)
[2020-09-14] MEDS: piperacillin/tazo 3.375gm/50ml 50 ML IV SCH ×2 (07:43→16:16)
[2020-09-14] MEDS: thiamine inj. 100 MG, MVI, adult No.4 with vit. K 10 ML in dextrose 5% water 500ml 500 ML IV SCH ×3 (07:43)
[2020-09-14] MEDS: lactobacillus rhamnosus 10,000 MMU CELLS/CAPSULE OGT SCH ×2 (07:44→20:33)
[2020-09-14] MEDS: pantoprazole 40 MG vial IV SCH (07:44)
[2020-09-14] MEDS: metoprolol tartrate 25mg tablet OGT SCH (07:44)
[2020-09-14] MEDS: atorvastatin 20mg tablet OGT SCH (07:44)
[2020-09-14] MEDS: K and/or MAG REPLACEMENT MC SCH ×2 (07:45→19:13)
[2020-09-14] MEDS: heparin, porcine 5000 units/ml vial SQ SCH ×2 (07:46→21:11)
[2020-09-14] MEDS: mineral oil/petrolatum, white cream 113gm jar TP SCH (07:46)
[2020-09-14] MEDS: lisinopril 5mg tablet OGT SCH (07:47)
[2020-09-14] MEDS: nystatin 15 GM powder TP SCH ×2 (07:47→21:11)
[2020-09-14 09:00] LABS: ALBUMIN 1.7 G/DL (3.4-5.0); ANION GAP 5 (8-16); BLOOD UREA NITROGEN 81 MG/DL (7-18); BUN/CREATININE RATIO 45.3 (5.4-32.0); CHLORIDE 104 MMOL/L (99-107); CREATININE 1.79 MG/DL (0.60-1.10); GLUCOSE 371 MG/DL (70-104); PHOSPHORUS 3.9 MG/DL (2.3-4.5); POTASSIUM 3.2 MMOL/L (3.5-5.1); SODIUM 138 MMOL/L (135-145); TOTAL CARBON DIOXIDE 29.5 MMOL/L (24-32); eGFR 40 ML/MIN
[2020-09-14 09:08] LABS: CALCIUM 6.5 MG/DL (8.5-10.1)
[2020-09-14] MEDS: dextrose 5%-normal saline 1,000 ML IV SCH (11:06)
--- NOTE | 2020-09-14 11:28 | NUR ---
Reassessment: Pt remains intubated and tolerating TF with GRV 150-475 mL which is WNL. Still no documented BM. Pt received PRN bowel care for the first time 09/13. D/w RN who reports pt is passing gas and states she will provide additional bowel care today. Will continue to follow closely. Recs: 1) Continuous TF using Vital High Protein with goal rate of 80 mL/hr. To begin at 20 mL/hr and advance by 20 mL Q8H as tolerated to goal rate. To provide: 1920 mL total volume/day, 1920 kcal, 168 g protein, and 1605 mL water 2) Additional water flush per MD 3) Prealbumin q Thursday/, daily weights 4) Continue banana bag given EtOH hx 5) PO diet advancement to heart healthy CHO controlled as medically indicated following extubation 6) DM and protein educations once stable 7) Routine bowel care Addendum: 09/14/20 at [address] Amended: Links added.
[2020-09-14] MEDS: methylPREDNISolone sod succ/PF 40mg inj. IV SCH ×2 (14:39→20:33)
--- NOTE | 2020-09-14 15:12 | NUR ---
I have reviewed and agree with all medications administered and interventions performed by [facility] Student(CHARI CULVER
[2020-09-14 16:02] LABS: ANION GAP 7 (8-16); BLOOD UREA NITROGEN 91 MG/DL (7-18); BUN/CREATININE RATIO 42.3 (5.4-32.0); CALCIUM 7.6 MG/DL (8.5-10.1); CHLORIDE 104 MMOL/L (99-107); CREATININE 2.15 MG/DL (0.60-1.10); GLUCOSE 155 MG/DL (70-104); MAGNESIUM 2.3 MG/DL (1.5-2.4); PHOSPHORUS 4.6 MG/DL (2.3-4.5); POTASSIUM 3.9 MMOL/L (3.5-5.1); SODIUM 144 MMOL/L (135-145); TOTAL CARBON DIOXIDE 32.8 MMOL/L (24-32); eGFR 33 ML/MIN
[2020-09-14 20:55] LABS: ANION GAP 8 (8-16); BLOOD UREA NITROGEN 94 MG/DL (7-18); CALCIUM 8.1 MG/DL (8.5-10.1); CHLORIDE 105 MMOL/L (99-107); CREATININE 2.09 MG/DL (0.60-1.10); GLUCOSE 169 MG/DL (70-104); MAGNESIUM 2.2 MG/DL (1.5-2.4); PHOSPHORUS 4.5 MG/DL (2.3-4.5); SODIUM 149 MMOL/L (135-145); TOTAL CARBON DIOXIDE 35.6 MMOL/L (24-32); eGFR 34 ML/MIN
[2020-09-14] MEDS: midazolam 100mg in NS 100ml 100 ML IV PRN (21:20)
[2020-09-14] MEDS: insulin glargine (Lantus) pen - multi-dose SQ SCH (21:30)
[2020-09-15] VITALS (23 sets, daily range): BP systolic 85–117; BP diastolic 49–83
[2020-09-15] MEDS: piperacillin/tazo 3.375gm/50ml 50 ML IV SCH ×4 (01:11→23:56)
[2020-09-15] MEDS: mineral oil/petrolatum ophthal oint EACHEYE SCH ×4 (01:11→20:53)
[2020-09-15] MEDS: methylPREDNISolone sod succ/PF 40mg inj. IV SCH ×4 (01:11→20:54)
[2020-09-15] MEDS: FENTANYL-0.9 % NACL/PF 100 ML IV PRN (01:42)
[2020-09-15] MEDS: insulin regular, human U-100 3ml vial - multi-dose SQ SCH ×4 (02:26→21:03)
[2020-09-15] MEDS: amiodarone/D5 360MG/200ML BAG 200 ML IV SCH ×5 (02:50→23:57)
[2020-09-15] MEDS: ipratropium/albuterol 3ml nebule NEB SCH ×6 (02:55→22:53)
[2020-09-15 03:03] LABS: BASOPHILS % (AUTO) 0.2 % (0-1); EOSINOPHILS % (AUTO) 0 % (0-6); HEMATOCRIT 38.7 % (42.0-52.0); HEMOGLOBIN 12.3 g/dl (14.0-17.9); LYMPHOCYTES # (AUTO) 0.3 X10'3 (1.1-4.8); LYMPHOCYTES % (AUTO) 1.3 % (21-51); MEAN CORPUSCULAR HEMOGLOBIN 26.7 PG (27.0-31.0); MEAN CORPUSCULAR HGB CONC 31.7 g/dL (33.0-36.5); MEAN CORPUSCULAR VOLUME 84.1 FL (78-98); MEAN PLATELET VOLUME 8.2 FL (7.4-10.4); MONOCYTES # (AUTO) 0.6 X10'3 (0-0.9); NEUTROPHILS # (AUTO) 19.6 X10'3 (1.8-7.7); NEUTROPHILS % (AUTO) 95.5 % (42-75); PLATELET COUNT 432 X10'3 (140-440); RED CELL DISTRIBUTION WIDTH 17.9 % (11.5-14.5); WHITE BLOOD COUNT 20.5 X10'3 (4.5-11.0)
[2020-09-15 03:19] LABS: ALANINE AMINOTRANSFERASE 38 U/L (12-78); ALBUMIN/GLOBULIN RATIO 0.4 (1.1-1.5); ALKALINE PHOSPHATASE 205 IU/L (46-116); ANION GAP 3 (8-16); ASPARTATE AMINO TRANSFERASE 34 U/L (10-37); BILIRUBIN,TOTAL 1.4 MG/DL (0.1-1.0); BLOOD UREA NITROGEN 95 MG/DL (7-18); BUN/CREATININE RATIO 45.9 (5.4-32.0); CALCIUM 8.1 MG/DL (8.5-10.1); CHLORIDE 107 MMOL/L (99-107); CREATININE 2.07 MG/DL (0.60-1.10); GLUCOSE 173 MG/DL (70-104); MAGNESIUM 2.1 MG/DL (1.5-2.4); PHOSPHORUS 4.5 MG/DL (2.3-4.5); POTASSIUM 3.7 MMOL/L (3.5-5.1); SODIUM 146 MMOL/L (135-145); TOTAL CARBON DIOXIDE 35.9 MMOL/L (24-32); TOTAL PROTEIN 7.5 G/DL (6.4-8.2); eGFR 34 ML/MIN
[2020-09-15] MEDS: NORepinephrine 8mg/ 250ml NS 250 ML IV SCH (03:43)
[2020-09-15 04:01] LABS: ABG BASE EXCESS 8.9 mmol/L (-2.0-2.0); ABG HCO3 32.6 mmol/L (22.0-26.0); ABG OXYGEN SATURATION 93.6 % (94-97); ABG PCO2 (T) 40.4 mmHg (35.0-48.0); ABG PO2 (T) 65.6 mmHg (75.0-100.0); FCOHb 0.5 % (0.0-3.9); FMetHb 0.2 % (0.0-1.5); FO2Hb 92.9 % (94-97); PATIENT TEMPERATURE 36.7; PEEP 5 cm H2O; RESPIRATORY RATE 16 b/min; TIDAL VOLUME 500 mL; TOTAL HEMOGLOBIN 13.2 G/dl (14.0-18.0)
--- NOTE | 2020-09-15 06:14 | NUR ---
Problems reprioritized. Patient report given, questions answered & plan of care reviewed with George NAVARRO.
--- NOTE | 2020-09-15 06:36 | NUR ---
Patient in room CICU 2009. I have received report from Tawana NAVARRO and had the opportunity to ask questions and assume patient care.
[2020-09-15] MEDS: K and/or MAG REPLACEMENT MC SCH ×2 (08:00→20:00)
[2020-09-15] MEDS: pantoprazole 40 MG vial IV SCH (08:45)
[2020-09-15] MEDS: heparin, porcine 5000 units/ml vial SQ SCH ×2 (08:47→20:54)
[2020-09-15] MEDS: lactobacillus rhamnosus 10,000 MMU CELLS/CAPSULE OGT SCH ×2 (08:48→20:54)
[2020-09-15] MEDS: metoprolol tartrate 25mg tablet OGT SCH (08:49)
[2020-09-15] MEDS: atorvastatin 20mg tablet OGT SCH (08:49)
[2020-09-15] MEDS: lisinopril 5mg tablet OGT SCH (08:49)
[2020-09-15] MEDS: mineral oil/petrolatum, white cream 113gm jar TP SCH (08:50)
[2020-09-15] MEDS: nystatin 15 GM powder TP SCH ×2 (08:50→20:54)
[2020-09-15] MEDS: thiamine inj. 100 MG, MVI, adult No.4 with vit. K 10 ML in dextrose 5% water 500ml 500 ML IV SCH ×3 (08:53)
[2020-09-15] MEDS: dextrose 5%-normal saline 1,000 ML IV SCH (08:57)
[2020-09-15] MEDS: midazolam 100mg in NS 100ml 100 ML IV PRN (17:46)
--- NOTE | 2020-09-15 18:10 | NUR ---
Problems reprioritized. Patient report given, questions answered & plan of care reviewed with Chante NAVARRO.
--- NOTE | 2020-09-15 18:34 | NUR ---
[facility]. I have received report from George NAVARRO and had the opportunity to ask questions and assume patient care. Addendum: 09/15/20 at 1835 by Chante Osorio RN Amended: Links added.
[2020-09-15] MEDS: insulin glargine (Lantus) pen - multi-dose SQ SCH (21:04)
[2020-09-15 21:12] LABS: ANION GAP 6 (8-16); BLOOD UREA NITROGEN 98 MG/DL (7-18); BUN/CREATININE RATIO 53.6 (5.4-32.0); CALCIUM 8.3 MG/DL (8.5-10.1); CHLORIDE 107 MMOL/L (99-107); CREATININE 1.83 MG/DL (0.60-1.10); GLUCOSE 85 MG/DL (70-104); PHOSPHORUS 4.3 MG/DL (2.3-4.5); POTASSIUM 3.2 MMOL/L (3.5-5.1); SODIUM 150 MMOL/L (135-145); TOTAL CARBON DIOXIDE 37.3 MMOL/L (24-32); eGFR 39 ML/MIN
[2020-09-15] MEDS: potassium Cl 20mEq/100mL bag 100 ML IV PRN ×2 (23:03→23:57)
[2020-09-16] VITALS (24 sets, daily range): BP systolic 87–169; BP diastolic 58–92
[2020-09-16] MEDS: NORepinephrine 8mg/ 250ml NS 250 ML IV SCH (00:40)
[2020-09-16] MEDS: potassium Cl 20mEq/100mL bag 100 ML IV PRN ×3 (00:48→08:36)
[2020-09-16] MEDS: mineral oil/petrolatum ophthal oint EACHEYE SCH ×4 (02:58→20:55)
[2020-09-16] MEDS: methylPREDNISolone sod succ/PF 40mg inj. IV SCH ×4 (02:58→20:55)
[2020-09-16] MEDS: insulin regular, human U-100 3ml vial - multi-dose SQ SCH ×4 (03:02→21:03)
[2020-09-16] MEDS: dextrose 5%-normal saline 1,000 ML IV SCH (03:06)
[2020-09-16 03:12] LABS: BASOPHILS # (AUTO) 0.1 X10'3 (0-0.2); BASOPHILS % (AUTO) 0.4 % (0-1); EOSINOPHILS % (AUTO) 0 % (0-6); HEMATOCRIT 38.7 % (42.0-52.0); HEMOGLOBIN 12.5 g/dl (14.0-17.9); LYMPHOCYTES # (AUTO) 0.3 X10'3 (1.1-4.8); LYMPHOCYTES % (AUTO) 1.6 % (21-51); MEAN CORPUSCULAR HEMOGLOBIN 27.1 PG (27.0-31.0); MEAN CORPUSCULAR HGB CONC 32.3 g/dL (33.0-36.5); MEAN CORPUSCULAR VOLUME 84.1 FL (78-98); MEAN PLATELET VOLUME 8.6 FL (7.4-10.4); MONOCYTES # (AUTO) 0.5 X10'3 (0-0.9); MONOCYTES % (AUTO) 2.8 % (2-12); NEUTROPHILS # (AUTO) 18.6 X10'3 (1.8-7.7); NEUTROPHILS % (AUTO) 95.2 % (42-75); PLATELET COUNT 439 X10'3 (140-440); RED CELL DISTRIBUTION WIDTH 17.7 % (11.5-14.5); WHITE BLOOD COUNT 19.5 X10'3 (4.5-11.0)
[2020-09-16 03:18] LABS: ALANINE AMINOTRANSFERASE 52 U/L (12-78); ALBUMIN/GLOBULIN RATIO 0.4 (1.1-1.5); ALKALINE PHOSPHATASE 209 IU/L (46-116); ANION GAP 5 (8-16); ASPARTATE AMINO TRANSFERASE 47 U/L (10-37); BILIRUBIN,TOTAL 1.3 MG/DL (0.1-1.0); BLOOD UREA NITROGEN 99 MG/DL (7-18); BUN/CREATININE RATIO 53.2 (5.4-32.0); CALCIUM 8.1 MG/DL (8.5-10.1); CHLORIDE 108 MMOL/L (99-107); CREATININE 1.86 MG/DL (0.60-1.10); GLUCOSE 194 MG/DL (70-104); POTASSIUM 3.4 MMOL/L (3.5-5.1); SODIUM 150 MMOL/L (135-145); TOTAL CARBON DIOXIDE 36.9 MMOL/L (24-32); TOTAL PROTEIN 7.1 G/DL (6.4-8.2); eGFR 38 ML/MIN
[2020-09-16] MEDS: midazolam 100mg in NS 100ml 100 ML IV PRN ×2 (03:18→23:33)
[2020-09-16] MEDS: ipratropium/albuterol 3ml nebule NEB SCH ×6 (03:29→23:10)
[2020-09-16 06:26] LABS: ABG HCO3 8.1 mmol/L (22.0-26.0); ABG PCO2 (T) 12.7 mmHg (35.0-48.0); ABG PO2 (T) 74.3 mmHg (75.0-100.0); PEEP 5 cm H2O; TOTAL HEMOGLOBIN < 4.7 G/dl (14.0-18.0)
--- NOTE | 2020-09-16 06:41 | NUR ---
Problems reprioritized. Patient report given, questions answered & plan of care reviewed with Marge NAVARRO.
[2020-09-16] MEDS: FENTANYL-0.9 % NACL/PF 100 ML IV PRN (06:44)
[2020-09-16] MEDS: K and/or MAG REPLACEMENT MC SCH ×2 (08:00→20:00)
[2020-09-16] MEDS: nystatin 15 GM powder TP SCH ×2 (08:00→20:55)
[2020-09-16] MEDS: mineral oil/petrolatum, white cream 113gm jar TP SCH (08:00)
[2020-09-16] MEDS: metoprolol tartrate 25mg tablet OGT SCH (08:00)
[2020-09-16] MEDS: lisinopril 5mg tablet OGT SCH (08:00)
[2020-09-16 08:01] LABS: ABG BASE EXCESS 9.5 mmol/L (-2.0-2.0); ABG HCO3 33.1 mmol/L (22.0-26.0); ABG OXYGEN SATURATION 96.1 % (94-97); ABG PCO2 (T) 40.9 mmHg (35.0-48.0); ABG PO2 (T) 77.5 mmHg (75.0-100.0); FCOHb 0.3 % (0.0-3.9); FMetHb 0.2 % (0.0-1.5); FO2Hb 95.6 % (94-97); PEEP 5 cm H2O; RESPIRATORY RATE 16 b/min; TIDAL VOLUME 500 mL; TOTAL HEMOGLOBIN 13.3 G/dl (14.0-18.0)
--- NOTE | 2020-09-16 08:05 | NUR ---
stopped sedation for sedation vacation.
[2020-09-16] MEDS: thiamine inj. 100 MG, MVI, adult No.4 with vit. K 10 ML in dextrose 5% water 500ml 500 ML IV SCH ×3 (08:07)
[2020-09-16] MEDS: lactobacillus rhamnosus 10,000 MMU CELLS/CAPSULE OGT SCH ×2 (08:07→20:55)
[2020-09-16] MEDS: atorvastatin 20mg tablet OGT SCH (08:07)
[2020-09-16] MEDS: pantoprazole 40 MG vial IV SCH (08:07)
[2020-09-16] MEDS: piperacillin/tazo 3.375gm/50ml 50 ML IV SCH ×2 (08:07→16:13)
[2020-09-16] MEDS: heparin, porcine 5000 units/ml vial SQ SCH ×2 (08:09→20:56)
[2020-09-16] MEDS: dexmedetomidine/D5W 100mL 100 ML IV SCH ×4 (09:21→23:24)
[2020-09-16] MEDS: amiodarone/D5 360MG/200ML BAG 200 ML IV SCH ×3 (09:36→20:57)
[2020-09-16] MEDS: furosemide 1,000 MG in NS 250ml IV soln IV SCH (14:15)
[2020-09-16 17:51] LABS: ALBUMIN 1.9 G/DL (3.4-5.0); ANION GAP 6 (8-16); BLOOD UREA NITROGEN 93 MG/DL (7-18); BUN/CREATININE RATIO 54.4 (5.4-32.0); CALCIUM 7.7 MG/DL (8.5-10.1); CHLORIDE 113 MMOL/L (99-107); CREATININE 1.71 MG/DL (0.60-1.10); GLUCOSE 256 MG/DL (70-104); MAGNESIUM 1.9 MG/DL (1.5-2.4); PHOSPHORUS 3.9 MG/DL (2.3-4.5); POTASSIUM 3.1 MMOL/L (3.5-5.1); SODIUM 154 MMOL/L (135-145); TOTAL CARBON DIOXIDE 34.8 MMOL/L (24-32); eGFR 42 ML/MIN
--- NOTE | 2020-09-16 18:30 | NUR ---
Patient in room CICU 2009. I have received report from RAMON Irvin and had the opportunity to ask questions and assume patient care. Patient is intubated/sedated and resting comfortably. I will continue to monitor.
[2020-09-16] MEDS: insulin glargine (Lantus) pen - multi-dose SQ SCH (21:04)
[2020-09-17] VITALS (23 sets, daily range): BP systolic 93–127; BP diastolic 61–79
[2020-09-17] MEDS: NORepinephrine 8mg/ 250ml NS 250 ML IV SCH (00:24)
[2020-09-17] MEDS: piperacillin/tazo 3.375gm/50ml 50 ML IV SCH ×2 (00:57→07:19)
[2020-09-17] MEDS: dextrose 5%-normal saline 1,000 ML IV SCH (01:01)
[2020-09-17] MEDS: insulin regular, human U-100 3ml vial - multi-dose SQ SCH ×4 (02:29→20:38)
[2020-09-17] MEDS: methylPREDNISolone sod succ/PF 40mg inj. IV SCH ×4 (02:31→20:24)
[2020-09-17] MEDS: mineral oil/petrolatum ophthal oint EACHEYE SCH ×4 (02:31→20:25)
[2020-09-17] MEDS: dexmedetomidine/D5W 100mL 100 ML IV SCH ×5 (02:38→19:22)
[2020-09-17 03:13] LABS: BASOPHILS % (AUTO) 0.2 % (0-1); EOSINOPHILS % (AUTO) 0 % (0-6); HEMATOCRIT 43.3 % (42.0-52.0); HEMOGLOBIN 13.6 g/dl (14.0-17.9); LYMPHOCYTES # (AUTO) 0.3 X10'3 (1.1-4.8); LYMPHOCYTES % (AUTO) 2.4 % (21-51); MEAN CORPUSCULAR HEMOGLOBIN 26.7 PG (27.0-31.0); MEAN CORPUSCULAR HGB CONC 31.4 g/dL (33.0-36.5); MEAN PLATELET VOLUME 8.1 FL (7.4-10.4); MONOCYTES # (AUTO) 0.4 X10'3 (0-0.9); MONOCYTES % (AUTO) 2.9 % (2-12); NEUTROPHILS # (AUTO) 13.3 X10'3 (1.8-7.7); NEUTROPHILS % (AUTO) 94.5 % (42-75); PLATELET COUNT 311 X10'3 (140-440); RED BLOOD COUNT 5.09 X10'6 (4.70-6.10); RED CELL DISTRIBUTION WIDTH 18.2 % (11.5-14.5); WHITE BLOOD COUNT 14.1 X10'3 (4.5-11.0)
[2020-09-17 03:24] LABS: ALANINE AMINOTRANSFERASE 67 U/L (12-78); ALBUMIN/GLOBULIN RATIO 0.4 (1.1-1.5); ALKALINE PHOSPHATASE 230 IU/L (46-116); ANION GAP 7 (8-16); ASPARTATE AMINO TRANSFERASE 51 U/L (10-37); BILIRUBIN,TOTAL 1.2 MG/DL (0.1-1.0); BLOOD UREA NITROGEN 91 MG/DL (7-18); BUN/CREATININE RATIO 54.8 (5.4-32.0); CALCIUM 8.1 MG/DL (8.5-10.1); CHLORIDE 112 MMOL/L (99-107); CREATININE 1.66 MG/DL (0.60-1.10); GLUCOSE 175 MG/DL (70-104); MAGNESIUM 2.1 MG/DL (1.5-2.4); PHOSPHORUS 4.5 MG/DL (2.3-4.5); POTASSIUM 3.2 MMOL/L (3.5-5.1); PREALBUMIN 23.1 MG/DL (19-36); TOTAL PROTEIN 7.2 G/DL (6.4-8.2); eGFR 44 ML/MIN
[2020-09-17] MEDS: ipratropium/albuterol 3ml nebule NEB SCH ×6 (03:25→23:04)
[2020-09-17 03:28] LABS: SODIUM 155 MMOL/L (135-145)
[2020-09-17 04:00] LABS: ABG HCO3 37.4 mmol/L (22.0-26.0); ABG OXYGEN SATURATION 94.3 % (94-97); ABG PCO2 (T) 39.7 mmHg (35.0-48.0); ABG PO2 (T) 66.5 mmHg (75.0-100.0); FCOHb 0.8 % (0.0-3.9); FMetHb 0.2 % (0.0-1.5); FO2Hb 93.4 % (94-97); PATIENT TEMPERATURE 36.2; PEEP 5 cm H2O; RESPIRATORY RATE 16 b/min; TIDAL VOLUME 500 mL; TOTAL HEMOGLOBIN 14.8 G/dl (14.0-18.0)
[2020-09-17] MEDS: amiodarone/D5 360MG/200ML BAG 200 ML IV SCH ×4 (04:32→19:23)
[2020-09-17] MEDS: lisinopril 5mg tablet OGT SCH (07:20)
[2020-09-17] MEDS: metoprolol tartrate 25mg tablet OGT SCH (07:20)
[2020-09-17] MEDS: atorvastatin 20mg tablet OGT SCH (07:20)
[2020-09-17] MEDS: heparin, porcine 5000 units/ml vial SQ SCH ×2 (07:21→20:25)
[2020-09-17] MEDS: lactobacillus rhamnosus 10,000 MMU CELLS/CAPSULE OGT SCH ×2 (07:21→20:25)
[2020-09-17] MEDS: nystatin 15 GM powder TP SCH ×2 (07:21→20:25)
[2020-09-17] MEDS: mineral oil/petrolatum, white cream 113gm jar TP SCH (07:22)
[2020-09-17] MEDS: pantoprazole 40 MG vial IV SCH (07:25)
[2020-09-17] MEDS: potassium Cl 20mEq/100mL bag 100 ML IV PRN ×2 (07:28→08:16)
[2020-09-17] MEDS: thiamine inj. 100 MG, MVI, adult No.4 with vit. K 10 ML in dextrose 5% water 500ml 500 ML IV SCH ×3 (07:44)
[2020-09-17] MEDS: FENTANYL-0.9 % NACL/PF 100 ML IV PRN (08:28)
[2020-09-17] MEDS: dextrose 5%-water 1,000 ML IV SCH ×4 (12:22→23:45)
[2020-09-17] MEDS: fluconazole-Diflucan 200mg/NS 100 ML IV SCH (12:23)
--- NOTE | 2020-09-17 12:51 | NUR ---
per dr ovidio gallo
--- NOTE | 2020-09-17 14:54 | NUR ---
F/u 09/17: Pt tolerating TF at goal GRV WNL. TF turned off today pending possible extubation per MD. Na 155 today w/ 200ml Q4 water flushes started last night per RN. Receiving electrolyte replacements per protocol. Will monitor for TF tolerance if no extubation and PO diet advancement as medically indicated IF extubation. Recs: 1) Continuous TF using Vital High Protein with goal rate of 80 mL/hr. To begin at 20 mL/hr and advance by 20 mL Q8H as tolerated to goal rate. To provide: 1920 mL total volume/day, 1920 kcal, 168 g protein, and 1605 mL water 2) Additional water flush per MD 3) Prealbumin q Thursday/, daily weights 4) Continue banana bag given EtOH hx 5) PO diet advancement to heart healthy CHO controlled as medically indicated following extubation 6) DM and protein educations once stable 7) Routine bowel care Addendum: 09/17/20 at [address] Amended: Links added.
[2020-09-17] MEDS: ceFAZolin/D5W- 1GM premix 50 ML IV SCH (15:14)
--- NOTE | 2020-09-17 18:15 | NUR ---
Patient in room CICU 2009. I have received report from RAMON Howe and had the opportunity to ask questions and assume patient care.
[2020-09-17] MEDS: K and/or MAG REPLACEMENT MC SCH ×2 (18:27→20:00)
[2020-09-17] MEDS: insulin glargine (Lantus) pen - multi-dose SQ SCH (20:39)
[2020-09-18] VITALS (24 sets, daily range): BP systolic 89–120; BP diastolic 59–86
[2020-09-18] MEDS: ceFAZolin/D5W- 1GM premix 50 ML IV SCH ×3 (00:06→15:10)
[2020-09-18] MEDS ORDERED: midazolam 100mg in NS 100ml 100 ML IV PRN (00:30)
[2020-09-18] MEDS: methylPREDNISolone sod succ/PF 40mg inj. IV SCH ×4 (02:45→20:27)
[2020-09-18] MEDS: mineral oil/petrolatum ophthal oint EACHEYE SCH ×4 (02:45→20:00)
[2020-09-18] MEDS: insulin regular, human U-100 3ml vial - multi-dose SQ SCH ×2 (02:47→07:42)
[2020-09-18 02:56] LABS: BASOPHILS % (AUTO) 0 % (0-1); EOSINOPHILS % (AUTO) 0.1 % (0-6); HEMATOCRIT 43.8 % (42.0-52.0); HEMOGLOBIN 13.8 g/dl (14.0-17.9); LYMPHOCYTES # (AUTO) 0.3 X10'3 (1.1-4.8); LYMPHOCYTES % (AUTO) 1.4 % (21-51); MEAN CORPUSCULAR HEMOGLOBIN 26.8 PG (27.0-31.0); MEAN CORPUSCULAR HGB CONC 31.5 g/dL (33.0-36.5); MEAN PLATELET VOLUME 7.9 FL (7.4-10.4); MONOCYTES # (AUTO) 0.6 X10'3 (0-0.9); MONOCYTES % (AUTO) 3.1 % (2-12); NEUTROPHILS # (AUTO) 18.9 X10'3 (1.8-7.7); NEUTROPHILS % (AUTO) 95.4 % (42-75); PLATELET COUNT 250 X10'3 (140-440); RED BLOOD COUNT 5.15 X10'6 (4.70-6.10); RED CELL DISTRIBUTION WIDTH 18.8 % (11.5-14.5); WHITE BLOOD COUNT 19.8 X10'3 (4.5-11.0)
[2020-09-18 03:14] LABS: ALANINE AMINOTRANSFERASE 128 U/L (12-78); ALBUMIN 1.9 G/DL (3.4-5.0); ALBUMIN/GLOBULIN RATIO 0.4 (1.1-1.5); ALKALINE PHOSPHATASE 256 IU/L (46-116); ANION GAP 4 (8-16); ASPARTATE AMINO TRANSFERASE 94 U/L (10-37); BILIRUBIN,TOTAL 1.1 MG/DL (0.1-1.0); BLOOD UREA NITROGEN 79 MG/DL (7-18); BUN/CREATININE RATIO 51.6 (5.4-32.0); CALCIUM 8.2 MG/DL (8.5-10.1); CHLORIDE 109 MMOL/L (99-107); CREATININE 1.53 MG/DL (0.60-1.10); GLUCOSE 209 MG/DL (70-104); PHOSPHORUS 4.5 MG/DL (2.3-4.5); POTASSIUM 3.4 MMOL/L (3.5-5.1); SODIUM 151 MMOL/L (135-145); TOTAL CARBON DIOXIDE 38.1 MMOL/L (24-32); TOTAL PROTEIN 6.5 G/DL (6.4-8.2); eGFR 48 ML/MIN
[2020-09-18] MEDS: ipratropium/albuterol 3ml nebule NEB SCH ×6 (03:35→23:06)
[2020-09-18] MEDS: dextrose 5%-water 1,000 ML IV SCH ×6 (04:54→23:45)
[2020-09-18 04:55] LABS: ABG BASE EXCESS 8.9 mmol/L (-2.0-2.0); ABG HCO3 30.9 mmol/L (22.0-26.0); ABG OXYGEN SATURATION 93.4 % (94-97); ABG PCO2 (T) 34.5 mmHg (35.0-48.0); ABG PO2 (T) 67.8 mmHg (75.0-100.0); FCOHb 0.6 % (0.0-3.9); FMetHb 0.2 % (0.0-1.5); FO2Hb 92.7 % (94-97); PATIENT TEMPERATURE 37.4; PEEP 5 cm H2O; RESPIRATORY RATE 14 b/min; TIDAL VOLUME 600 mL; TOTAL HEMOGLOBIN 14.6 G/dl (14.0-18.0)
[2020-09-18] MEDS: amiodarone/D5 360MG/200ML BAG 200 ML IV SCH ×4 (04:55→18:32)
--- NOTE | 2020-09-18 06:23 | NUR ---
Problems reprioritized. Patient report given, questions answered & plan of care reviewed with RAMON Dave.
--- NOTE | 2020-09-18 06:30 | NUR ---
Patient in room CICU 2009. I have received report from Peggy NAVARRO and had the opportunity to ask questions and assume patient care.
[2020-09-18] MEDS: dexmedetomidine/D5W 100mL 100 ML IV SCH ×3 (06:36→19:45)
[2020-09-18] MEDS: thiamine inj. 100 MG, MVI, adult No.4 with vit. K 10 ML in dextrose 5% water 500ml 500 ML IV SCH ×3 (07:50)
[2020-09-18] MEDS: fluconazole-Diflucan 200mg/NS 100 ML IV SCH (07:50)
[2020-09-18] MEDS: atorvastatin 20mg tablet OGT SCH (07:51)
[2020-09-18] MEDS: lactobacillus rhamnosus 10,000 MMU CELLS/CAPSULE OGT SCH ×2 (07:51→20:28)
[2020-09-18] MEDS: heparin, porcine 5000 units/ml vial SQ SCH (07:51)
[2020-09-18] MEDS: pantoprazole 40 MG vial IV SCH (07:51)
[2020-09-18] MEDS: nystatin 15 GM powder TP SCH ×2 (07:52→20:28)
[2020-09-18] MEDS: mineral oil/petrolatum, white cream 113gm jar TP SCH (07:53)
[2020-09-18 07:59] LABS: MAGNESIUM 2.1 MG/DL (1.5-2.4)
[2020-09-18] MEDS: lisinopril 5mg tablet OGT SCH (08:00)
[2020-09-18] MEDS: metoprolol tartrate 25mg tablet OGT SCH (08:00)
[2020-09-18] MEDS: K and/or MAG REPLACEMENT MC SCH ×2 (08:00→20:00)
[2020-09-18] MEDS ORDERED: racepinephrine 11.25mg/0.5ml nebule IH PRN (10:05)
[2020-09-18] MEDS: furosemide 1,000 MG in NS 250ml IV soln IV SCH (10:35)
[2020-09-18] MEDS ORDERED: enoxaparin 100mg/ml syringe SUBCUT ONE (11:15)
[2020-09-18] MEDS ORDERED: normal saline 1000ml 1,000 ML IV ONE (11:15)
--- NOTE | 2020-09-18 11:15 | NUR ---
Patient in afib with rvr since around extubation at 1005. Afib not new. Orders per Dr Morrison to bolus 1 liter ns and wt based lovenox. Patient currently on maintenance dose of amiodarone
--- NOTE | 2020-09-18 18:15 | NUR ---
Patient in room CICU 2009. I have received report from RAMON Dave and had the opportunity to ask questions and assume patient care. Patient was extubated today and is sitting up eating dinner w/o problem
[2020-09-18] MEDS: insulin Lispro (HumaLOG) vial - multi-dose SQ SCH ×2 (18:30→20:38)
[2020-09-18] MEDS: enoxaparin 100mg/ml syringe SUBCUT SCH (20:27)
[2020-09-18] MEDS: insulin glargine (Lantus) pen - multi-dose SQ SCH (20:39)
[2020-09-19] VITALS (32 sets, daily range): BP systolic 72–119; BP diastolic 43–86
[2020-09-19] MEDS: ceFAZolin/D5W- 1GM premix 50 ML IV SCH ×3 (00:03→16:09)
[2020-09-19] MEDS: dexmedetomidine/D5W 100mL 100 ML IV SCH ×3 (00:04→08:50)
[2020-09-19] MEDS: mineral oil/petrolatum ophthal oint EACHEYE SCH ×4 (02:00→20:00)
--- NOTE | 2020-09-19 02:00 | NUR ---
Patient continues to be anxious, asking for ice, pillows, to be repositioned. He is fighting sleep and any redirection despite Precedex. I will given IM Haldol in an effort to calm him.
[2020-09-19] MEDS: methylPREDNISolone sod succ/PF 40mg inj. IV SCH ×4 (02:25→20:56)
[2020-09-19 02:42] LABS: BASOPHILS % (AUTO) 0.1 % (0-1); EOSINOPHILS % (AUTO) 0 % (0-6); HEMATOCRIT 41.2 % (42.0-52.0); LYMPHOCYTES # (AUTO) 0.8 X10'3 (1.1-4.8); LYMPHOCYTES % (AUTO) 3.7 % (21-51); MEAN CORPUSCULAR HEMOGLOBIN 26.9 PG (27.0-31.0); MEAN CORPUSCULAR HGB CONC 31.7 g/dL (33.0-36.5); MEAN CORPUSCULAR VOLUME 84.8 FL (78-98); MEAN PLATELET VOLUME 8.6 FL (7.4-10.4); MONOCYTES # (AUTO) 0.5 X10'3 (0-0.9); MONOCYTES % (AUTO) 2.5 % (2-12); NEUTROPHILS # (AUTO) 19.6 X10'3 (1.8-7.7); NEUTROPHILS % (AUTO) 93.7 % (42-75); PLATELET COUNT 182 X10'3 (140-440); RED BLOOD COUNT 4.86 X10'6 (4.70-6.10); RED CELL DISTRIBUTION WIDTH 18.4 % (11.5-14.5); WHITE BLOOD COUNT 20.9 X10'3 (4.5-11.0)
[2020-09-19] MEDS: haloperidol lactate 5mg/ml inj IM PRN (02:42)
[2020-09-19 03:08] LABS: ALANINE AMINOTRANSFERASE 219 U/L (12-78); ALBUMIN 2.1 G/DL (3.4-5.0); ALBUMIN/GLOBULIN RATIO 0.5 (1.1-1.5); ALKALINE PHOSPHATASE 302 IU/L (46-116); ANION GAP 5 (8-16); ASPARTATE AMINO TRANSFERASE 172 U/L (10-37); BILIRUBIN,TOTAL 1.4 MG/DL (0.1-1.0); BLOOD UREA NITROGEN 90 MG/DL (7-18); BUN/CREATININE RATIO 52.9 (5.4-32.0); CALCIUM 8.8 MG/DL (8.5-10.1); CHLORIDE 97 MMOL/L (99-107); GLUCOSE 205 MG/DL (70-104); PHOSPHORUS 6.2 MG/DL (2.3-4.5); POTASSIUM 3.7 MMOL/L (3.5-5.1); SODIUM 135 MMOL/L (135-145); TOTAL CARBON DIOXIDE 33.1 MMOL/L (24-32); TOTAL PROTEIN 6.7 G/DL (6.4-8.2); eGFR 43 ML/MIN
[2020-09-19] MEDS: ipratropium/albuterol 3ml nebule NEB SCH ×6 (03:40→23:33)
[2020-09-19] MEDS: dextrose 5%-water 1,000 ML IV SCH ×2 (04:04→05:43)
--- NOTE | 2020-09-19 05:00 | NUR ---
Patient finally sleeping.
[2020-09-19] MEDS: amiodarone/D5 360MG/200ML BAG 200 ML IV SCH ×2 (05:43→16:51)
--- NOTE | 2020-09-19 06:23 | NUR ---
Problems reprioritized. Patient report given, questions answered & plan of care reviewed with RAMON Dawkins.
--- NOTE | 2020-09-19 06:24 | NUR ---
Patient in room CICU 2009. I have received report from Peggy NAVARRO and had the opportunity to ask questions and assume patient care.
[2020-09-19] MEDS: atorvastatin 20mg tablet OGT SCH (07:11)
[2020-09-19] MEDS: thiamine 100mg tablet PO SCH (07:12)
[2020-09-19] MEDS: lisinopril 5mg tablet OGT SCH (07:12)
[2020-09-19] MEDS: metoprolol tartrate 25mg tablet OGT SCH (07:13)
[2020-09-19] MEDS: multivitamins, therapeutics tablet PO SCH (07:13)
[2020-09-19] MEDS: pantoprazole 40 MG vial IV SCH (07:14)
[2020-09-19] MEDS: lactobacillus rhamnosus 10,000 MMU CELLS/CAPSULE OGT SCH ×2 (07:14→21:02)
[2020-09-19] MEDS: nystatin 15 GM powder TP SCH ×2 (07:15→21:02)
[2020-09-19] MEDS: enoxaparin 100mg/ml syringe SUBCUT SCH ×2 (07:15→20:55)
[2020-09-19] MEDS: fluconazole-Diflucan 200mg/NS 100 ML IV SCH (07:16)
[2020-09-19] MEDS: mineral oil/petrolatum, white cream 113gm jar TP SCH (07:25)
[2020-09-19] MEDS: K and/or MAG REPLACEMENT MC SCH ×2 (08:00→20:00)
[2020-09-19] MEDS: insulin Lispro (HumaLOG) vial - multi-dose SQ SCH (08:58)
--- NOTE | 2020-09-19 12:53 | NUR ---
Problems reprioritized. Patient report given, questions answered & plan of care reviewed with Johnathan NAVARRO.
--- NOTE | 2020-09-19 18:20 | NUR ---
Patient in room CICU 2009. I have received report from Johnathan NAVARRO and had the opportunity to ask questions and assume patient care. Pt on cell phone at shift change. Dinner tray served. Sitter at bedside. On oxygen at 2l/min via NC oxygen saturation is 97%. Rhythm is afib HR100. Right upper arm PICC line is double lumen & transduced. Line zeroed. Remaining port saline flushed. No distress at shift change. Pt has orders to transfer out of ICU. Addendum: 09/20/20 at 0023 by Mar Topete RN PICC line is triple lumen.
[2020-09-19 19:59] LABS: ALANINE AMINOTRANSFERASE 139 U/L (12-78); ALBUMIN 2.2 G/DL (3.4-5.0); ALBUMIN/GLOBULIN RATIO 0.5 (1.1-1.5); ALKALINE PHOSPHATASE 253 IU/L (46-116); ASPARTATE AMINO TRANSFERASE 83 U/L (10-37); BILIRUBIN,DIRECT 1.2 MG/DL (0-0.3); POTASSIUM 3.5 MMOL/L (3.5-5.1); TOTAL PROTEIN 6.9 G/DL (6.4-8.2)
[2020-09-19] MEDS: insulin glargine (Lantus) pen - multi-dose SQ SCH (20:53)
[2020-09-19] MEDS: furosemide 10 MG/1 ML 10ml inj IV SCH (21:03)
[2020-09-19] MEDS: amiodarone 200mg tablet PO SCH (21:31)
[2020-09-20] VITALS (17 sets, daily range): BP systolic 84–131; BP diastolic 53–85
[2020-09-20] MEDS: ceFAZolin/D5W- 1GM premix 50 ML IV SCH ×3 (00:06→16:34)
[2020-09-20] MEDS: mineral oil/petrolatum ophthal oint EACHEYE SCH ×4 (02:00→20:00)
[2020-09-20 02:43] LABS: BASOPHILS % (AUTO) 0.1 % (0-1); EOSINOPHILS % (AUTO) 0 % (0-6); HEMATOCRIT 40.1 % (42.0-52.0); HEMOGLOBIN 12.9 g/dl (14.0-17.9); LYMPHOCYTES % (AUTO) 7.3 % (21-51); MEAN CORPUSCULAR HEMOGLOBIN 26.8 PG (27.0-31.0); MEAN CORPUSCULAR HGB CONC 32.2 g/dL (33.0-36.5); MEAN CORPUSCULAR VOLUME 83.1 FL (78-98); MEAN PLATELET VOLUME 9.5 FL (7.4-10.4); MONOCYTES # (AUTO) 0.4 X10'3 (0-0.9); MONOCYTES % (AUTO) 3.1 % (2-12); NEUTROPHILS # (AUTO) 12.6 X10'3 (1.8-7.7); NEUTROPHILS % (AUTO) 89.5 % (42-75); PLATELET COUNT 166 X10'3 (140-440); RED BLOOD COUNT 4.83 X10'6 (4.70-6.10); RED CELL DISTRIBUTION WIDTH 18.1 % (11.5-14.5)
[2020-09-20 03:04] LABS: ALANINE AMINOTRANSFERASE 114 U/L (12-78); ALBUMIN 2.2 G/DL (3.4-5.0); ALBUMIN/GLOBULIN RATIO 0.5 (1.1-1.5); ALKALINE PHOSPHATASE 242 IU/L (46-116); ANION GAP 7 (8-16); ASPARTATE AMINO TRANSFERASE 66 U/L (10-37); BILIRUBIN,TOTAL 2.1 MG/DL (0.1-1.0); BLOOD UREA NITROGEN 103 MG/DL (7-18); BUN/CREATININE RATIO 55.4 (5.4-32.0); CHLORIDE 95 MMOL/L (99-107); CREATININE 1.86 MG/DL (0.60-1.10); GLUCOSE 160 MG/DL (70-104); PHOSPHORUS 5.9 MG/DL (2.3-4.5); POTASSIUM 3.6 MMOL/L (3.5-5.1); PREALBUMIN 29.7 MG/DL (19-36); SODIUM 132 MMOL/L (135-145); TOTAL CARBON DIOXIDE 30.3 MMOL/L (24-32); TOTAL PROTEIN 6.6 G/DL (6.4-8.2); eGFR 38 ML/MIN
[2020-09-20] MEDS: ipratropium/albuterol 3ml nebule NEB SCH ×5 (03:26→19:47)
[2020-09-20] MEDS: methylPREDNISolone sod succ/PF 40mg inj. IV SCH ×4 (05:59→20:38)
--- NOTE | 2020-09-20 06:20 | NUR ---
Problems reprioritized. Patient report given, questions answered & plan of care reviewed.
[2020-09-20] MEDS: lisinopril 5mg tablet OGT SCH (08:00)
[2020-09-20] MEDS: K and/or MAG REPLACEMENT MC SCH ×2 (08:00→20:00)
[2020-09-20] MEDS: fluconazole-Diflucan 200mg/NS 100 ML IV SCH (08:31)
[2020-09-20] MEDS: pantoprazole 40 MG vial IV SCH (08:32)
[2020-09-20] MEDS: thiamine 100mg tablet PO SCH (08:33)
[2020-09-20] MEDS: furosemide 10 MG/1 ML 10ml inj IV SCH ×2 (08:33→20:45)
[2020-09-20] MEDS: metoprolol tartrate 25mg tablet OGT SCH (08:34)
[2020-09-20] MEDS: atorvastatin 20mg tablet OGT SCH (08:34)
[2020-09-20] MEDS: multivitamins, therapeutics tablet PO SCH (08:34)
[2020-09-20] MEDS: mineral oil/petrolatum, white cream 113gm jar TP SCH (08:37)
[2020-09-20] MEDS: enoxaparin 100mg/ml syringe SUBCUT SCH ×2 (08:37→20:39)
[2020-09-20] MEDS: nystatin 15 GM powder TP SCH ×2 (08:37→20:40)
[2020-09-20] MEDS: lactobacillus rhamnosus 10,000 MMU CELLS/CAPSULE OGT SCH ×2 (08:54→20:37)
[2020-09-20] MEDS: insulin Lispro (HumaLOG) vial - multi-dose SQ SCH (09:00)
[2020-09-20] MEDS: furosemide 1,000 MG in NS 250ml IV soln IV SCH (10:35)
--- NOTE | 2020-09-20 12:12 | NUR ---
Reassessment: Pt has been extubated and TF discontinued. Pt documented as A/O x 3 and confused. Pt s/p BSS with ST initially recs pureed food with thin liquids however diet was advanced to mechanical soft chop all per ST recs after f/u BSS. Pt initially with 50-75% PO intake with 100% PO intake of protein and 25% PO intake of starch at breakfast this morning. D/w RN recommendation to discontinue old pureed diet order that remains active at this time. LBM 09/19. PRN bowel care available. Will continue to follow closely and monitor need for nutrition intervention pending further trends in PO intake. Recs: 1) Continue mechanical soft CHO controlled, 2 g Na restriction, dry tray per MD/ recs 2) Monitor need for additional protein pending further trends in PO intake 3) Continue routine Thiamine/MVI for EtOH hx 4) DM and protein educations once stable; A1c 7.8% 5) Routine bowel care 6) Scaled weights per rx Addendum: 09/20/20 at [address] Amended: Links added.
--- NOTE | 2020-09-20 15:45 | NUR ---
I have received report from RAMON Mann and had the opportunity to ask questions and assume patient care.
--- NOTE | 2020-09-20 16:05 | NUR ---
Pt arrived to surgical floor via wheelchair, accompanied by RN and PCT. 3 bags of belongings sent with patient as well as medications. Pt settled in bed, call light placed within reach with education regarding use. Pt states understanding and willingness to comply.
--- NOTE | 2020-09-20 16:47 | NUR ---
Problems reprioritized. Patient report given, questions answered & plan of care reviewed with Usha NAVARRO. Pt transferred to surgical with belongings, chart and medications.
[2020-09-20 18:00] LABS: CLARITY,URINE CLOUDY (Clear); COLOR,URINE YELLOW (Yellow); GLUCOSE, URINE NEGATIVE (Neg); KETONES,URINE NEGATIVE (Neg); LEUKOCYTE ESTERASE ,URINE TRACE (Neg); NITRITES, URINE NEGATIVE (Neg); OCCULT BLOOD,URINE LARGE (Neg); PROTEIN,URINE TRACE mg/dl (Neg); TOTAL PROTEIN,URINE RANDOM 46.8 MG/DL
[2020-09-20 18:01] LABS: UA COLLECTION TYPE NON-SPECIFIED
[2020-09-20 18:07] LABS: MUCUS STRANDS MANY /LPF (Neg); SQUAMOUS EPITHELIAL CELL,UR FEW /LPF (FEW)
[2020-09-20 18:09] LABS: CAL OXALATE CRYSTALS FEW /HPF (NEGATIVE); RBC,URINE 50-100 /HPF (0-2); WBC,URINE 0-4 /HPF (0-4)
[2020-09-20 18:10] LABS: BACTERIA,URINE FEW /HPF (Neg); RENAL CELLS, URINE FEW /HPF; TRANSITIONAL EPI CELLS,URINE FEW /HPF
[2020-09-20 18:11] LABS: COARSE GRANULAR CAST 0-3 /LPF (NEGATIVE)
--- NOTE | 2020-09-20 19:09 | NUR ---
Pt hasn't finished eating, up to [facility] and wants to walk during shift change. Blood sugar prior to eating was 100 at level 6. Will recheck BS at 2100. Addendum: 09/20/20 at 1913 by Regina Bolanos RN Amended: Links added.
[2020-09-20] MEDS ORDERED: ipratropium/albuterol 3ml nebule NEB PRN (20:00)
[2020-09-20] MEDS: amiodarone 200mg tablet PO SCH (20:37)
[2020-09-20] MEDS: insulin glargine (Lantus) pen - multi-dose SQ SCH (21:12)
[2020-09-21] VITALS: BP 107/70
[2020-09-21] MEDS: ceFAZolin/D5W- 1GM premix 50 ML IV SCH ×2 (01:08→07:36)
[2020-09-21] MEDS: mineral oil/petrolatum ophthal oint EACHEYE SCH ×2 (02:00→07:15)
[2020-09-21] MEDS: methylPREDNISolone sod succ/PF 40mg inj. IV SCH ×2 (02:19→07:52)
[2020-09-21 02:58] LABS: BASOPHILS % (AUTO) 0.2 % (0-1); EOSINOPHILS % (AUTO) 0 % (0-6); HEMATOCRIT 37.5 % (42.0-52.0); HEMOGLOBIN 12.2 g/dl (14.0-17.9); LYMPHOCYTES # (AUTO) 0.3 X10'3 (1.1-4.8); LYMPHOCYTES % (AUTO) 1.6 % (21-51); MEAN CORPUSCULAR HEMOGLOBIN 26.7 PG (27.0-31.0); MEAN CORPUSCULAR HGB CONC 32.4 g/dL (33.0-36.5); MEAN CORPUSCULAR VOLUME 82.5 FL (78-98); MEAN PLATELET VOLUME 9.7 FL (7.4-10.4); MONOCYTES # (AUTO) 0.7 X10'3 (0-0.9); MONOCYTES % (AUTO) 4.2 % (2-12); NEUTROPHILS # (AUTO) 16.5 X10'3 (1.8-7.7); PLATELET COUNT 163 X10'3 (140-440); RED BLOOD COUNT 4.55 X10'6 (4.70-6.10); RED CELL DISTRIBUTION WIDTH 18.5 % (11.5-14.5); WHITE BLOOD COUNT 17.5 X10'3 (4.5-11.0)
[2020-09-21 03:23] LABS: ALANINE AMINOTRANSFERASE 74 U/L (12-78); ALBUMIN 2.3 G/DL (3.4-5.0); ALBUMIN/GLOBULIN RATIO 0.5 (1.1-1.5); ALKALINE PHOSPHATASE 212 IU/L (46-116); ANION GAP 6 (8-16); ASPARTATE AMINO TRANSFERASE 51 U/L (10-37); BILIRUBIN,TOTAL 2.5 MG/DL (0.1-1.0); BLOOD UREA NITROGEN 96 MG/DL (7-18); BUN/CREATININE RATIO 56.5 (5.4-32.0); CALCIUM 8.3 MG/DL (8.5-10.1); CHLORIDE 99 MMOL/L (99-107); GLUCOSE 106 MG/DL (70-104); PHOSPHORUS 4.2 MG/DL (2.3-4.5); POTASSIUM 3.1 MMOL/L (3.5-5.1); SODIUM 137 MMOL/L (135-145); TOTAL CARBON DIOXIDE 31.7 MMOL/L (24-32); TOTAL PROTEIN 6.6 G/DL (6.4-8.2); eGFR 43 ML/MIN
--- NOTE | 2020-09-21 06:36 | NUR ---
Patient in room [facility] 357. I have received report from RAMON Tapia and had the opportunity to ask questions and assume patient care.
[2020-09-21 07:00] VITALS: BP 93/65
[2020-09-21] MEDS: furosemide 10 MG/1 ML 10ml inj IV SCH (07:18)
[2020-09-21] MEDS: metoprolol tartrate 25mg tablet OGT SCH (07:18)
[2020-09-21] MEDS: lisinopril 5mg tablet OGT SCH (07:19)
[2020-09-21] MEDS: lactobacillus rhamnosus 10,000 MMU CELLS/CAPSULE OGT SCH ×2 (07:35→21:19)
[2020-09-21] MEDS: amiodarone 200mg tablet PO SCH (07:35)
[2020-09-21] MEDS: multivitamins, therapeutics tablet PO SCH (07:35)
[2020-09-21] MEDS: atorvastatin 20mg tablet OGT SCH (07:35)
[2020-09-21] MEDS: enoxaparin 100mg/ml syringe SUBCUT SCH ×2 (07:35→21:20)
[2020-09-21] MEDS: thiamine 100mg tablet PO SCH (07:35)
[2020-09-21] MEDS: pantoprazole 40 MG vial IV SCH (07:51)
[2020-09-21] MEDS: mineral oil/petrolatum, white cream 113gm jar TP SCH (07:52)
[2020-09-21] MEDS: nystatin 15 GM powder TP SCH ×2 (07:52→21:25)
[2020-09-21] MEDS: K and/or MAG REPLACEMENT MC SCH ×2 (08:00→20:00)
[2020-09-21] MEDS: fluconazole-Diflucan 200mg/NS 100 ML IV SCH (08:00)
--- NOTE | 2020-09-21 10:00 | NUR ---
FC DC'd per orders. Pt tolerated well, educated to void in urinal or commode. Pt states understanding and willingness to comply.
--- NOTE | 2020-09-21 12:30 | NUR ---
Dressing to left lower extremity changed per written orders. Pt tolerated well. Will continue to monitor.
[2020-09-21 12:41] VITALS: BP 134/99
[2020-09-21] MEDS ORDERED: fluconazole 100mg tablet PO SCH (13:05)
[2020-09-21] MEDS ORDERED: magnesium Cl slow-release 64mg tablet PO PRN (13:05)
[2020-09-21] MEDS: potassium Cl 20 mEq SR tablet PO PRN ×2 (14:45→21:19)
[2020-09-21] MEDS: fluconazole 100mg tablet PO SCH (15:36)
[2020-09-21] MEDS: cephalexin 500mg capsule PO SCH ×2 (15:36→21:20)
[2020-09-21 18:00] VITALS: BP 115/67
--- NOTE | 2020-09-21 18:18 | NUR ---
Problems reprioritized. Patient report given, questions answered & plan of care reviewed with RAMON Olguin.
--- NOTE | 2020-09-21 19:00 | NUR ---
Patient in room [facility] 357. I have received report from RAMON Virgen and had the opportunity to ask questions and assume patient care.
[2020-09-22] VITALS: BP 94/58
[2020-09-22] MEDS: cephalexin 500mg capsule PO SCH ×4 (02:37→20:45)
[2020-09-22] MEDS: potassium Cl 20 mEq SR tablet PO PRN ×4 (02:37→21:14)
--- NOTE | 2020-09-22 06:00 | NUR ---
Patient in room [facility] 357. I have received report from RAMON Olguin and had the opportunity to ask questions and assume patient care.
--- NOTE | 2020-09-22 06:37 | NUR ---
Problems reprioritized. Patient report given, questions answered & plan of care reviewed with RAMON Jenkins.
[2020-09-22 08:00] VITALS: BP 97/60
[2020-09-22] MEDS: lisinopril 5mg tablet OGT SCH (08:00)
[2020-09-22] MEDS: K and/or MAG REPLACEMENT MC SCH ×2 (08:00→20:00)
[2020-09-22] MEDS: metoprolol tartrate 25mg tablet OGT SCH (08:00)
[2020-09-22] MEDS: fluconazole 100mg tablet PO SCH (08:06)
[2020-09-22] MEDS: enoxaparin 100mg/ml syringe SUBCUT SCH ×2 (08:07→20:46)
[2020-09-22] MEDS: amiodarone 200mg tablet PO SCH (08:08)
[2020-09-22] MEDS: thiamine 100mg tablet PO SCH (08:08)
[2020-09-22] MEDS: atorvastatin 20mg tablet OGT SCH (08:08)
[2020-09-22] MEDS: multivitamins, therapeutics tablet PO SCH (08:08)
[2020-09-22] MEDS: lactobacillus rhamnosus 10,000 MMU CELLS/CAPSULE OGT SCH ×2 (08:08→20:45)
[2020-09-22] MEDS: nystatin 15 GM powder TP SCH ×2 (08:14→20:46)
[2020-09-22] MEDS: mineral oil/petrolatum, white cream 113gm jar TP SCH (08:14)
[2020-09-22] MEDS: pantoprazole 40mg Tablet.DR PO SCH (10:20)
[2020-09-22 11:00] VITALS: BP 108/77
[2020-09-22 11:04] LABS: BASOPHILS % (AUTO) 0.1 % (0-1); EOSINOPHILS % (AUTO) 0 % (0-6); HEMATOCRIT 32.4 % (42.0-52.0); HEMOGLOBIN 10.4 g/dl (14.0-17.9); LYMPHOCYTES # (AUTO) 1.7 X10'3 (1.1-4.8); LYMPHOCYTES % (AUTO) 8.6 % (21-51); MEAN CORPUSCULAR VOLUME 84.2 FL (78-98); MEAN PLATELET VOLUME 9.9 FL (7.4-10.4); MONOCYTES # (AUTO) 0.6 X10'3 (0-0.9); NEUTROPHILS % (AUTO) 88.3 % (42-75); PLATELET COUNT 125 X10'3 (140-440); RED BLOOD COUNT 3.85 X10'6 (4.70-6.10); WHITE BLOOD COUNT 19.3 X10'3 (4.5-11.0)
[2020-09-22 11:14] LABS: ALANINE AMINOTRANSFERASE 56 U/L (12-78); ALBUMIN 2.4 G/DL (3.4-5.0); ALBUMIN/GLOBULIN RATIO 0.6 (1.1-1.5); ALKALINE PHOSPHATASE 193 IU/L (46-116); ANION GAP 2 (8-16); ASPARTATE AMINO TRANSFERASE 46 U/L (10-37); BILIRUBIN,TOTAL 2.7 MG/DL (0.1-1.0); BLOOD UREA NITROGEN 68 MG/DL (7-18); BUN/CREATININE RATIO 51.1 (5.4-32.0); CALCIUM 8.4 MG/DL (8.5-10.1); CHLORIDE 103 MMOL/L (99-107); CREATININE 1.33 MG/DL (0.60-1.10); GLUCOSE 135 MG/DL (70-104); PHOSPHORUS 2.3 MG/DL (2.3-4.5); POTASSIUM 3.4 MMOL/L (3.5-5.1); SODIUM 139 MMOL/L (135-145); TOTAL CARBON DIOXIDE 34.1 MMOL/L (24-32); TOTAL PROTEIN 6.6 G/DL (6.4-8.2); eGFR 57 ML/MIN
[2020-09-22 11:54] VITALS: BP 97/60
--- NOTE | 2020-09-22 12:56 | NUR ---
Via telephone call pt's friend stated pt's Control Specialist is Imelda Brar MD ), but is unable to recall pt's PMD. She will call w/ more information as obtained. Addendum: 09/22/20 at 1321 by Marichuy Nichole RN Dr. Mcclain notified.
[2020-09-22 18:15] VITALS: BP 102/76
--- NOTE | 2020-09-22 18:40 | NUR ---
Patient in room [facility] 357. I have received report from Alice and had the opportunity to ask questions and assume patient care.
--- NOTE | 2020-09-22 18:40 | NUR ---
Patient in room [facility] 357. I have received report from RAMON Jenkins and had the opportunity to ask questions and assume patient care.
--- NOTE | 2020-09-22 18:44 | NUR ---
Problems reprioritized. Patient report given, questions answered & plan of care reviewed with RAMON Olguin.
[2020-09-23 00:25] VITALS: BP 101/71
[2020-09-23] MEDS: cephalexin 500mg capsule PO SCH ×4 (02:07→21:09)
[2020-09-23 05:11] LABS: BASOPHILS % (AUTO) 0.2 % (0-1); EOSINOPHILS % (AUTO) 0 % (0-6); HEMATOCRIT 27.8 % (42.0-52.0); LYMPHOCYTES # (AUTO) 0.4 X10'3 (1.1-4.8); LYMPHOCYTES % (AUTO) 2.2 % (21-51); MEAN CORPUSCULAR HEMOGLOBIN 27.1 PG (27.0-31.0); MEAN CORPUSCULAR HGB CONC 32.5 g/dL (33.0-36.5); MEAN CORPUSCULAR VOLUME 83.4 FL (78-98); MEAN PLATELET VOLUME 10.3 FL (7.4-10.4); MONOCYTES # (AUTO) 0.3 X10'3 (0-0.9); MONOCYTES % (AUTO) 1.8 % (2-12); NEUTROPHILS # (AUTO) 17.6 X10'3 (1.8-7.7); NEUTROPHILS % (AUTO) 95.8 % (42-75); PLATELET COUNT 104 X10'3 (140-440); RED BLOOD COUNT 3.33 X10'6 (4.70-6.10); RED CELL DISTRIBUTION WIDTH 18.1 % (11.5-14.5); WHITE BLOOD COUNT 18.4 X10'3 (4.5-11.0)
[2020-09-23 05:30] LABS: ALANINE AMINOTRANSFERASE 48 U/L (12-78); ALBUMIN 2.2 G/DL (3.4-5.0); ALBUMIN/GLOBULIN RATIO 0.6 (1.1-1.5); ALKALINE PHOSPHATASE 165 IU/L (46-116); ANION GAP 4 (8-16); ASPARTATE AMINO TRANSFERASE 37 U/L (10-37); BILIRUBIN,TOTAL 2.6 MG/DL (0.1-1.0); BLOOD UREA NITROGEN 45 MG/DL (7-18); BUN/CREATININE RATIO 42.1 (5.4-32.0); CALCIUM 8.2 MG/DL (8.5-10.1); CHLORIDE 106 MMOL/L (99-107); CREATININE 1.07 MG/DL (0.60-1.10); GLUCOSE 119 MG/DL (70-104); POTASSIUM 3.5 MMOL/L (3.5-5.1); SODIUM 142 MMOL/L (135-145); TOTAL CARBON DIOXIDE 32.5 MMOL/L (24-32); eGFR 73 ML/MIN
--- NOTE | 2020-09-23 06:36 | NUR ---
Problems reprioritized. Patient report given, questions answered & plan of care reviewed with RAMON Jenkins.
--- NOTE | 2020-09-23 06:36 | NUR ---
Student documentation: I have reviewed and agree with all interventions, assessments performed and documented by Deonte Mcintosh Student Nurse. Student Medication Administration: For this medication-pass time frame, all medication were reviewed, dispensed, administered and documented per hospital policy by Deonte Mcintosh Student Nurse.
--- NOTE | 2020-09-23 06:49 | NUR ---
Patient in room [facility] 357. I have received report from RAMON Olguin and had the opportunity to ask questions and assume patient care.
[2020-09-23] MEDS: amiodarone 200mg tablet PO SCH (07:44)
[2020-09-23] MEDS: pantoprazole 40mg Tablet.DR PO SCH (07:44)
[2020-09-23] MEDS: atorvastatin 20mg tablet OGT SCH (07:45)
[2020-09-23] MEDS: lactobacillus rhamnosus 10,000 MMU CELLS/CAPSULE OGT SCH ×2 (07:45→21:09)
[2020-09-23] MEDS: thiamine 100mg tablet PO SCH (07:46)
[2020-09-23] MEDS: multivitamins, therapeutics tablet PO SCH (07:46)
[2020-09-23] MEDS: mineral oil/petrolatum, white cream 113gm jar TP SCH (07:46)
[2020-09-23] MEDS: furosemide 40mg tablet PO SCH (07:46)
[2020-09-23] MEDS: fluconazole 100mg tablet PO SCH (07:46)
[2020-09-23] MEDS: nystatin 15 GM powder TP SCH ×2 (07:46→20:00)
[2020-09-23 08:00] VITALS: BP 109/45
[2020-09-23] MEDS: K and/or MAG REPLACEMENT MC SCH ×2 (08:00→20:00)
[2020-09-23] MEDS: enoxaparin 100mg/ml syringe SUBCUT SCH ×2 (08:00→09:46)
[2020-09-23] MEDS ORDERED: furosemide 20 MG/2 ML vial IV SCH (08:00)
[2020-09-23] MEDS: lisinopril 5mg tablet OGT SCH (08:00)
[2020-09-23] MEDS ORDERED: metoprolol tartrate 12.5mg (1/2 tablet) OGT SCH (08:00)
--- NOTE | 2020-09-23 09:39 | NUR ---
paged regarding holding pt lovenox as H&H trending down.
--- NOTE | 2020-09-23 10:55 | NUR ---
Lovenox held, patient had large black tarry stool.
[2020-09-23 11:29] LABS: OCCULT BLOOD STOOL POSITIVE (Neg)
[2020-09-23 12:25] VITALS: BP 92/63
--- NOTE | 2020-09-23 13:51 | NUR ---
Paged about positive occult stool.
--- NOTE | 2020-09-23 14:23 | NUR ---
Reassessment: PO intake 25% average. Per MD progress note septic shock and acute respiratory failure resolved. Attempted bedside visit to provide written DM education however pt appeared somewhat confused. Left written DM ed at bedside with patient. Pending possible discharge. Last BM 09/23, ladonna matson. Recs: 1) Continue mechanical soft CHO controlled, 2 g Na restriction, dry tray per /ST recs 2) Continue routine Thiamine/MVI for EtOH hx 3) As needed bowel care Addendum: 09/23/20 at [address] Amended: Links added.
--- NOTE | 2020-09-23 17:38 | NUR ---
Pt has evidence of a GI bleed, canceled NO IV order, ordered a 12 Lead, all Anticoags stopped
--- NOTE | 2020-09-23 18:21 | NUR ---
paged regarding abnormal EKG. Addendum: 09/23/20 at 1834 by Alice Elias RN Sent additional page regarding abnormal ekg. Addendum: 09/23/20 at 1835 by Alice Elias RN spoke with ; no new orders.
--- NOTE | 2020-09-23 18:37 | NUR ---
Problems reprioritized. Patient report given, questions answered & plan of care reviewed with RAMON Guzmán.
--- NOTE | 2020-09-23 18:40 | NUR ---
Patient in room [facility] 357. I have received report from Michelle NAVARRO and had the opportunity to ask questions and assume patient care.
[2020-09-23 19:00] VITALS: BP 103/74
[2020-09-24] VITALS (9 sets, daily range): BP systolic 90–124; BP diastolic 55–83
[2020-09-24] MEDS: cephalexin 500mg capsule PO SCH ×4 (03:18→21:16)
--- NOTE | 2020-09-24 05:41 | NUR ---
Patient has remained NPo since midnight.
[2020-09-24 06:29] LABS: BASOPHILS % (AUTO) 0 % (0-1); EOSINOPHILS # (AUTO) 0.1 X10'3 (0-0.9); EOSINOPHILS % (AUTO) 0.4 % (0-6); HEMATOCRIT 24.1 % (42.0-52.0); HEMOGLOBIN 7.9 g/dl (14.0-17.9); LYMPHOCYTES # (AUTO) 0.5 X10'3 (1.1-4.8); LYMPHOCYTES % (AUTO) 3.7 % (21-51); MEAN CORPUSCULAR HEMOGLOBIN 27.3 PG (27.0-31.0); MEAN CORPUSCULAR HGB CONC 32.8 g/dL (33.0-36.5); MEAN CORPUSCULAR VOLUME 83.3 FL (78-98); MEAN PLATELET VOLUME 10.1 FL (7.4-10.4); MONOCYTES # (AUTO) 0.3 X10'3 (0-0.9); MONOCYTES % (AUTO) 2.2 % (2-12); NEUTROPHILS # (AUTO) 13.6 X10'3 (1.8-7.7); NEUTROPHILS % (AUTO) 93.7 % (42-75); PLATELET COUNT 87 X10'3 (140-440); RED BLOOD COUNT 2.89 X10'6 (4.70-6.10); RED CELL DISTRIBUTION WIDTH 18.2 % (11.5-14.5); WHITE BLOOD COUNT 14.6 X10'3 (4.5-11.0)
--- NOTE | 2020-09-24 06:31 | NUR ---
Patient in room [facility] 357. I have received report from ARNULFO NAVARRO and had the opportunity to ask questions and assume patient care.
[2020-09-24 06:51] LABS: ALANINE AMINOTRANSFERASE 43 U/L (12-78); ALBUMIN/GLOBULIN RATIO 0.5 (1.1-1.5); ALKALINE PHOSPHATASE 164 IU/L (46-116); ANION GAP 5 (8-16); ASPARTATE AMINO TRANSFERASE 37 U/L (10-37); BILIRUBIN,TOTAL 2.5 MG/DL (0.1-1.0); BLOOD UREA NITROGEN 30 MG/DL (7-18); BUN/CREATININE RATIO 29.7 (5.4-32.0); CALCIUM 7.8 MG/DL (8.5-10.1); CHLORIDE 104 MMOL/L (99-107); CREATININE 1.01 MG/DL (0.60-1.10); GLUCOSE 127 MG/DL (70-104); PREALBUMIN 15.9 MG/DL (19-36); SODIUM 139 MMOL/L (135-145); TOTAL CARBON DIOXIDE 29.8 MMOL/L (24-32); TOTAL PROTEIN 5.8 G/DL (6.4-8.2); eGFR 78 ML/MIN
--- NOTE | 2020-09-24 06:53 | NUR ---
Problems reprioritized. Patient report given, questions answered & plan of care reviewed with Nilson RN.
[2020-09-24 07:27] LABS: POTASSIUM 2.9 MMOL/L (3.5-5.1)
[2020-09-24] MEDS: K and/or MAG REPLACEMENT MC SCH ×2 (08:00→20:00)
[2020-09-24] MEDS: amiodarone 200mg tablet PO SCH (08:24)
[2020-09-24] MEDS: multivitamins, therapeutics tablet PO SCH (08:25)
[2020-09-24] MEDS: furosemide 40mg tablet PO SCH (08:25)
[2020-09-24] MEDS: potassium Cl 20 mEq SR tablet PO PRN ×3 (08:25→12:34)
[2020-09-24] MEDS: pantoprazole 40mg Tablet.DR PO SCH (08:25)
[2020-09-24] MEDS: fluconazole 100mg tablet PO SCH (08:26)
[2020-09-24] MEDS: thiamine 100mg tablet PO SCH (08:26)
[2020-09-24] MEDS ORDERED: acetaminophen 325mg tablet PO PRN ×2 (08:32)
[2020-09-24] MEDS ORDERED: atorvastatin 20mg tablet PO SCH (08:33)
[2020-09-24] MEDS ORDERED: lisinopril 5mg tablet PO SCH (08:34)
[2020-09-24] MEDS ORDERED: dextrose ORAL solution 15 GM/59 ML bottle PO PRN ×2 (08:34)
[2020-09-24] MEDS ORDERED: magnesium hydroxide 30ml (MOM) UD suspension PO PRN (08:35)
[2020-09-24] MEDS ORDERED: mag hydrox/Alum hydrox/simeth 30ml oral suspension PO PRN (08:35)
[2020-09-24] MEDS ORDERED: metoprolol tartrate 12.5mg (1/2 tablet) PO SCH (08:36)
[2020-09-24] MEDS ORDERED: ondansetron 4mg rapidly disintigrating tab PO PRN (08:36)
[2020-09-24] MEDS ORDERED: temazepam 15mg capsule PO PRN (08:37)
[2020-09-24] MEDS: mineral oil/petrolatum, white cream 113gm jar TP SCH (08:38)
[2020-09-24] MEDS: nystatin 15 GM powder TP SCH (08:38)
[2020-09-24] MEDS: lactobacillus rhamnosus 10,000 MMU CELLS/CAPSULE PO SCH (08:53)
[2020-09-24 10:21] LABS: ANISOCYTOSIS 2+; PLATELET ESTIMATE DECREASED
[2020-09-24 10:22] LABS: ELLIPTOCYTES 2+; HYPOCHROMASIA 1+; SCHISTOCYTES FEW; TARGET CELLS 1+
[2020-09-24 10:23] LABS: TEAR DROP CELLS FEW
--- NOTE | 2020-09-24 11:11 | NUR ---
Student Medication Administration: For this medication-pass time frame, all medication were reviewed, dispensed, administered and documented per hospital policy by Josh nursing coordinator.
[2020-09-24] MEDS ORDERED: fentaNYL/PF 50MCG/1 ML 2ML syringe ONE (15:00)
[2020-09-24] MEDS ORDERED: MIDAZolam 5mg/5ml vial ONE (15:00)
[2020-09-24] MEDS ORDERED: LIDOcaine Viscous 15ml cup ONE (15:00)
[2020-09-24] MEDS ORDERED: epiNEPHrine 0.1mg/ml 10ml syringe ONE (15:45)
--- NOTE | 2020-09-24 18:30 | NUR ---
Patient in room [facility] 357. I have received report from Nilson NAVARRO and had the opportunity to ask questions and assume patient care.
--- NOTE | 2020-09-24 18:35 | NUR ---
Problems reprioritized. Patient report given, questions answered & plan of care reviewed with ARNULFO NAVARRO.
[2020-09-24] MEDS ORDERED: potassium Cl 20 mEq SR tablet PO PRN (23:45)
[2020-09-24] MEDS ORDERED: magnesium Cl slow-release 64mg tablet PO PRN (23:45)
[2020-09-24] MEDS ORDERED: potassium CL 10mEq/100ml bag 100 ML IV PRN (23:45)
[2020-09-24] MEDS ORDERED: magnesium 4gm in 100ml NS 100 ML IV PRN (23:45)
[2020-09-25] VITALS: BP 127/60
[2020-09-25] MEDS: nystatin 15 GM powder TP SCH ×3 (00:13→19:40)
[2020-09-25] MEDS: cephalexin 500mg capsule PO SCH ×4 (01:43→19:40)
--- NOTE | 2020-09-25 02:34 | NUR ---
Earlier in the shift, pt's girlfriend Jack called in wanting to talk to him. The girlfriend stated that she needed $800 ruiz from him that he apparently got from [employer] prior to coming into the ER. Checked with ER registration who called back stating that they have nothing in the safe from him.
[2020-09-25 05:50] LABS: MAGNESIUM 1.8 MG/DL (1.5-2.4); POTASSIUM 3.4 MMOL/L (3.5-5.1)
--- NOTE | 2020-09-25 06:27 | NUR ---
Patient in room [facility] 357. I have received report from Nilson and had the opportunity to ask questions and assume patient care.
--- NOTE | 2020-09-25 06:35 | NUR ---
Patient in room [facility] 357. I have received report from Arielle NAVARRO and had the opportunity to ask questions and assume patient care.
--- NOTE | 2020-09-25 06:37 | NUR ---
Problems reprioritized. Patient report given, questions answered & plan of care reviewed with Nilson RN.
[2020-09-25] MEDS: pantoprazole 40mg Tablet.DR PO SCH (07:32)
[2020-09-25] MEDS: lactobacillus rhamnosus 10,000 MMU CELLS/CAPSULE PO SCH ×2 (07:33→19:40)
[2020-09-25] MEDS: fluconazole 100mg tablet PO SCH (07:34)
[2020-09-25] MEDS: furosemide 40mg tablet PO SCH (07:36)
[2020-09-25] MEDS: multivitamins, therapeutics tablet PO SCH (07:36)
[2020-09-25] MEDS: thiamine 100mg tablet PO SCH (07:38)
[2020-09-25] MEDS: amiodarone 200mg tablet PO SCH (07:39)
[2020-09-25] MEDS: mineral oil/petrolatum, white cream 113gm jar TP SCH (07:40)
[2020-09-25] MEDS: potassium Cl 20 mEq SR tablet PO PRN ×2 (07:41→16:37)
[2020-09-25] MEDS: K and/or MAG REPLACEMENT MC SCH ×4 (08:00→19:25)
[2020-09-25] MEDS: metoprolol tartrate 12.5mg (1/2 tablet) PO SCH (08:00)
[2020-09-25] MEDS: lisinopril 5mg tablet PO SCH (08:00)
[2020-09-25] MEDS: atorvastatin 20mg tablet PO SCH (08:00)
[2020-09-25 08:25] VITALS: BP 122/76
--- NOTE | 2020-09-25 11:13 | NUR ---
Student Medication Administration: For this medication-pass time frame, all medication were reviewed, dispensed, administered and documented per hospital policy by Basil nursing center tutor.
--- NOTE | 2020-09-25 11:13 | NUR ---
Student documentation: I have reviewed and agree with all interventions, assessments performed and documented by Basil, practical nursing instructor.
[2020-09-25 11:20] VITALS: BP 93/63
[2020-09-25 17:29] LABS: BASOPHILS % (AUTO) 0.2 % (0-1); EOSINOPHILS # (AUTO) 0.2 X10'3 (0-0.9); EOSINOPHILS % (AUTO) 1.3 % (0-6); HEMATOCRIT 27.5 % (42.0-52.0); HEMOGLOBIN 8.7 g/dl (14.0-17.9); LYMPHOCYTES # (AUTO) 0.6 X10'3 (1.1-4.8); LYMPHOCYTES % (AUTO) 4.2 % (21-51); MEAN CORPUSCULAR HEMOGLOBIN 26.4 PG (27.0-31.0); MEAN CORPUSCULAR HGB CONC 31.5 g/dL (33.0-36.5); MEAN CORPUSCULAR VOLUME 83.7 FL (78-98); MEAN PLATELET VOLUME 9.6 FL (7.4-10.4); MONOCYTES # (AUTO) 0.5 X10'3 (0-0.9); MONOCYTES % (AUTO) 3.6 % (2-12); NEUTROPHILS # (AUTO) 12.4 X10'3 (1.8-7.7); NEUTROPHILS % (AUTO) 90.7 % (42-75); PLATELET COUNT 114 X10'3 (140-440); RED BLOOD COUNT 3.29 X10'6 (4.70-6.10); RED CELL DISTRIBUTION WIDTH 18.9 % (11.5-14.5); WHITE BLOOD COUNT 13.7 X10'3 (4.5-11.0)
[2020-09-25 17:39] LABS: ALANINE AMINOTRANSFERASE 43 U/L (12-78); ALBUMIN 2.1 G/DL (3.4-5.0); ALBUMIN/GLOBULIN RATIO 0.5 (1.1-1.5); ALKALINE PHOSPHATASE 181 IU/L (46-116); ANION GAP 8 (8-16); ASPARTATE AMINO TRANSFERASE 29 U/L (10-37); BILIRUBIN,TOTAL 1.7 MG/DL (0.1-1.0); BLOOD UREA NITROGEN 20 MG/DL (7-18); BUN/CREATININE RATIO 20.2 (5.4-32.0); CALCIUM 7.6 MG/DL (8.5-10.1); CHLORIDE 102 MMOL/L (99-107); CREATININE 0.99 MG/DL (0.60-1.10); GLUCOSE 131 MG/DL (70-104); POTASSIUM 3.5 MMOL/L (3.5-5.1); SODIUM 137 MMOL/L (135-145); TOTAL CARBON DIOXIDE 27.4 MMOL/L (24-32); TOTAL PROTEIN 6.4 G/DL (6.4-8.2); eGFR 80 ML/MIN
--- NOTE | 2020-09-25 17:41 | NUR ---
Problems reprioritized. Patient report given, questions answered & plan of care reviewed with Nilson RN.
--- NOTE | 2020-09-25 18:32 | NUR ---
Problems reprioritized. Patient report given, questions answered & plan of care reviewed with PAVAN NAVARRO.
[2020-09-25 20:00] VITALS: BP 111/52
[2020-09-25] MEDS ORDERED: apixaban 2.5mg tablet PO SCH (20:00)
[2020-09-26] VITALS: BP 105/58
[2020-09-26] MEDS: cephalexin 500mg capsule PO SCH ×3 (02:42→14:38)
[2020-09-26 05:53] LABS: MAGNESIUM 1.7 MG/DL (1.5-2.4); POTASSIUM 3.3 MMOL/L (3.5-5.1)
--- NOTE | 2020-09-26 06:30 | NUR ---
Problems reprioritized. Patient report given, questions answered & plan of care reviewed with Terri NAVARRO.
[2020-09-26 07:00] VITALS: BP 81/47
--- NOTE | 2020-09-26 07:05 | NUR ---
Patient in room [facility]. I have received report from RAMON Abrams and had the opportunity to ask questions and assume patient care.
[2020-09-26] MEDS: atorvastatin 20mg tablet PO SCH (07:59)
[2020-09-26] MEDS: multivitamins, therapeutics tablet PO SCH (07:59)
[2020-09-26] MEDS: furosemide 40mg tablet PO SCH (08:00)
[2020-09-26] MEDS: metoprolol tartrate 12.5mg (1/2 tablet) PO SCH (08:00)
[2020-09-26] MEDS: lisinopril 5mg tablet PO SCH (08:00)
[2020-09-26] MEDS: pantoprazole 40mg Tablet.DR PO SCH (08:01)
[2020-09-26] MEDS: lactobacillus rhamnosus 10,000 MMU CELLS/CAPSULE PO SCH (08:01)
[2020-09-26] MEDS: thiamine 100mg tablet PO SCH (08:01)
[2020-09-26] MEDS: amiodarone 200mg tablet PO SCH (08:01)
[2020-09-26] MEDS: potassium Cl 20 mEq SR tablet PO PRN ×2 (08:02→14:38)
[2020-09-26] MEDS: fluconazole 100mg tablet PO SCH (08:02)
[2020-09-26] MEDS: mineral oil/petrolatum, white cream 113gm jar TP SCH (08:05)
[2020-09-26] MEDS: nystatin 15 GM powder TP SCH (08:05)
--- NOTE | 2020-09-26 08:09 | NUR ---
BP meds held BP 81/47. Pt asymptomatic at this time
[2020-09-26 08:35] VITALS: BP 105/77
--- NOTE | 2020-09-26 08:35 | NUR ---
Pt ambulated the unit appx 900' total independently w/ FWW, sat in recliner near window, and returned himself to room. VS assessed post activity.
[2020-09-26] MEDS ORDERED: MULT-25 PO (09:44)
[2020-09-26] MEDS ORDERED: WOOL454C TP (09:44)
[2020-09-26] MEDS ORDERED: PANT40TA54 PO (09:44)
[2020-09-26 12:00] VITALS: BP 96/71
--- NOTE | 2020-09-26 12:43 | NUR ---
Reassessment: Pt placed on clear liquid diet since 09/24 per GI MD s/p EGD showing esophagitis per RN today. Pt PO 100% clear liquids; would benefit from return to SB6 diet as medically indicated. LBM 09/25. K 3.3 receiving routine lasix as well as PRN K-DUR. Sepsis and SANDRA resolved at this time per MD note. Noted pt has no hx DM in EMR or prior visits; unsure if new DM DX. RD d/w charge entry specialist regarding if new DX. Pt would need official DX by hospitalist prior to RD visit for ed. Will monitor for PO diet advancement and additional protein needs as diet advances. Recs: 1) advance diet to SB6/carb controlled/heart healthy as medically indicated 2) monitor for ONS needs 3) routine Thiamine/MVI for EtOH hx 4) bowel care per rx 5) weekly wts 6) DM ed prior to discharge; following official DX by hospitalist Addendum: 09/26/20 at [address] Amended: Links added.
[2020-09-26] MEDS ORDERED: FURO-149 PO (15:02)
--- NOTE | 2020-09-26 15:07 | NUR ---
RN TC: recycling collections driver TC notified RD that pt has been aware of DM DX. Written DM ed w/ RD contact information has been placed in pt chart this admit. Addendum: 09/26/20 at [address] Amended: Links added.
[2020-09-26] MEDS ORDERED: CEPH500C5 PO (15:08)
--- NOTE | 2020-09-26 15:52 | NUR ---
Pt a1c 7.8. requested diabetes medication prior discharge. PAGER ID: [phone] MESSAGE: Adelaida Med/surg [id number]. Pt Avelino RM [id number] Pt was A1c 7.8 on 09/09. last accu check was done 09/21. Do you want address diabetes medication prior discharge? thanks
[2020-09-26] MEDS ORDERED: METF-900 PO (15:59)
--- NOTE | 2020-09-26 17:50 | NUR ---
Pt D/C'd home in stable conditions. Diabetes education given. Discharge and medication instructions given to pt. New prescription for metformin transcript to pharmacy. Wound care and picture taken prior discharge. IV removed. Pt was escorted to front to the hospital on w/c. Left the hospital via private vehicle driving self.
== END 2020-09-26 17:27 | disposition home or self-care (01) | DRG 720 ==
LOC: ER 14:48 → ED HOLD 20:02 → PCU 3S 21:30 → CICU 2S 09-11 08:13 → SUR 3N 09-20 16:09
PROVIDERS: ADMIT Internal Medicine; ATTEND Family Medicine
PROC: 5A1955Z Respiratory Ventilation, Greater than 96 Consecutive Hours (ICD-10-PCS; principal; 2020-09-11)
PROC: 0BH17EZ Insertion of Endotracheal Airway into Trachea, Via Natural or Artificial Opening (ICD-10-PCS; 2020-09-11)
PROC: 02HV33Z Insertion of Infusion Device into Superior Vena Cava, Percutaneous Approach (ICD-10-PCS; 2020-09-11)
PROC: B548ZZA Ultrasonography of Superior Vena Cava, Guidance (ICD-10-PCS; 2020-09-11)
PROC: 04HY32Z Insertion of Monitoring Device into Lower Artery, Percutaneous Approach (ICD-10-PCS; 2020-09-11)
PROC: 4A133B1 Monitoring of Arterial Pressure, Peripheral, Percutaneous Approach (ICD-10-PCS; 2020-09-11)
PROC: 4A133J1 Monitoring of Arterial Pulse, Peripheral, Percutaneous Approach (ICD-10-PCS; 2020-09-11)
PROC: 0W3P8ZZ Control Bleeding in Gastrointestinal Tract, Via Natural or Artificial Opening Endoscopic (ICD-10-PCS; 2020-09-24)
PROC: 0DB68ZX Excision of Stomach, Via Natural or Artificial Opening Endoscopic, Diagnostic (ICD-10-PCS; 2020-09-24)
DX: A41.9 Sepsis, unspecified organism (principal); L03.116 Cellulitis of left lower limb; J96.00 Acute respiratory failure, unspecified whether with hypoxia or hypercapnia; F10.20 Alcohol dependence, uncomplicated; K26.4 Chronic or unspecified duodenal ulcer with hemorrhage; E11.22 Type 2 diabetes mellitus with diabetic chronic kidney disease; I48.91 Unspecified atrial fibrillation; F17.210 Nicotine dependence, cigarettes, uncomplicated; I47.1 Supraventricular tachycardia; E11.65 Type 2 diabetes mellitus with hyperglycemia; I83.028 Varicose veins of left lower extremity with ulcer other part of lower leg; R65.21 Severe sepsis with septic shock; N18.30 Chronic kidney disease, stage 3 unspecified; E66.01 Morbid (severe) obesity due to excess calories; B18.2 Chronic viral hepatitis C; B95.61 Methicillin susceptible Staphylococcus aureus infection as the cause of diseases classified elsewhere; D68.9 Coagulation defect, unspecified; L97.829 Non-pressure chronic ulcer of other part of left lower leg with unspecified severity; K25.9 Gastric ulcer, unspecified as acute or chronic, without hemorrhage or perforation; G93.40 Encephalopathy, unspecified; D62 Acute posthemorrhagic anemia; K21.00 Gastro-esophageal reflux disease with esophagitis, without bleeding; K44.9 Diaphragmatic hernia without obstruction or gangrene; E78.5 Hyperlipidemia, unspecified; F15.129 Other stimulant abuse with intoxication, unspecified; I13.0 Hypertensive heart and chronic kidney disease with heart failure and stage 1 through stage 4 chronic kidney disease, or unspecified chronic kidney disease; I42.7 Cardiomyopathy due to drug and external agent; I50.23 Acute on chronic systolic (congestive) heart failure; N17.9 Acute kidney failure, unspecified; Z88.8 Allergy status to other drugs, medicaments and biological substances; Z68.30 Body mass index [BMI] 30.0-30.9, adult; E87.6 Hypokalemia; Z79.899 Other long term (current) drug therapy; Z71.51 Drug abuse counseling and surveillance of drug abuser
CPT/HCPCS: 36415; 36573; 36600; 43227; 43236; 43239; 43255; 70450; 71045; 71046; 71250; 74176; 76937; 80053; 80061; 80069; 80076; 80202; 80305; 81001; 82140; 82150; 82272; 82570; 82803; 82948; 83036; 83605; 83735; 83880; 84100; 84132; 84133; 84134; 84145; 84156; 84300; 84439; 84443; 84540; 85007; 85008; 85018; 85025; 85610; 85730; 86703; 86705; 86706; 86709; 86803; 87040; 87070; 87077; 87081; 87186; 87340; 90715; 92508; 92616; 93005; 93306; 93308; 93971; 94002; 94003; 94640; 94667; 94760; 94799; 96365; 97110; 97116; 97162; 97530; 97535; 99152; 99153; 99285; A4620; C9113; G0378; J0171; J0690; J1200; J1450; J1630; J1644; J1650; J1815; J1940; J2060; J2250; J2270; J2543; J2920; J2930; J3010; J3370; J3411; J3480; J3490; J7030; J7040; J7042; J7060; J7070

== ENCOUNTER 2020-09-29 01:18 | Emergency (ER) | payer MEDICAID ==
[~2020-09-29] VITALS: Ht 170.2 cm; Wt 95.0 kg
[~2020-09-29 01:18] MED LIST changes: +ATOR40TA72 PO; +CEPH500C5 PO; +FURO-149 PO; +LISI-604 PO; +METF-900 PO; +METO-395 PO; +MULT-25 PO; +PANT40TA54 PO; +SPIR25TA5 PO; +WOOL454C TP; -etomidate 2mg/ml inj. ONE; -rocuronium 10mg/ml inj IV ONE
[2020-09-29 03:44] LABS: BASOPHILS # (AUTO) 0.1 X10'3 (0-0.2); BASOPHILS % (AUTO) 0.5 % (0-1); EOSINOPHILS # (AUTO) 0.1 X10'3 (0-0.9); EOSINOPHILS % (AUTO) 1.1 % (0-6); HEMATOCRIT 25.9 % (42.0-52.0); HEMOGLOBIN 8.4 g/dl (14.0-17.9); LYMPHOCYTES # (AUTO) 1.4 X10'3 (1.1-4.8); LYMPHOCYTES % (AUTO) 12.7 % (21-51); MEAN CORPUSCULAR HEMOGLOBIN 27.2 PG (27.0-31.0); MEAN CORPUSCULAR HGB CONC 32.4 g/dL (33.0-36.5); MONOCYTES # (AUTO) 0.4 X10'3 (0-0.9); MONOCYTES % (AUTO) 3.7 % (2-12); NEUTROPHILS # (AUTO) 8.9 X10'3 (1.8-7.7); PLATELET COUNT 121 X10'3 (140-440); RED BLOOD COUNT 3.08 X10'6 (4.70-6.10); RED CELL DISTRIBUTION WIDTH 19.2 % (11.5-14.5); WHITE BLOOD COUNT 10.9 X10'3 (4.5-11.0)
[2020-09-29 03:50] LABS: ALANINE AMINOTRANSFERASE 36 U/L (12-78); ALBUMIN 2.1 G/DL (3.4-5.0); ALBUMIN/GLOBULIN RATIO 0.5 (1.1-1.5); ALKALINE PHOSPHATASE 251 IU/L (46-116); ANION GAP 6 (8-16); ASPARTATE AMINO TRANSFERASE 21 U/L (10-37); BILIRUBIN,TOTAL 1.7 MG/DL (0.1-1.0); BLOOD UREA NITROGEN 17 MG/DL (7-18); CHLORIDE 105 MMOL/L (99-107); CREATININE 1.21 MG/DL (0.60-1.10); GLUCOSE 105 MG/DL (70-104); POTASSIUM 3.9 MMOL/L (3.5-5.1); SODIUM 137 MMOL/L (135-145); TOTAL CARBON DIOXIDE 26.1 MMOL/L (24-32); TOTAL PROTEIN 6.7 G/DL (6.4-8.2); eGFR 63 ML/MIN
[2020-09-29 04:38] LABS: CLARITY,URINE CLEAR (Clear); COLOR,URINE AMBER (Yellow); GLUCOSE, URINE NEGATIVE (Neg); KETONES,URINE TRACE mg/dl (Neg); LEUKOCYTE ESTERASE ,URINE NEGATIVE (Neg); NITRITES, URINE NEGATIVE (Neg); OCCULT BLOOD,URINE TRACE-INTACT (Neg); PH,URINE 6.5 (4.8-8.0); PROTEIN,URINE 100 mg/dl (Neg); UROBILINOGEN,URINE >=8.0 E.U/dL (0.2-1.0)
[2020-09-29 04:57] LABS: UA COLLECTION TYPE CLN CATCH MIDSTREAM
[2020-09-29 05:05] LABS: MUCUS STRANDS MANY /LPF (Neg); SQUAMOUS EPITHELIAL CELL,UR FEW /LPF (FEW)
[2020-09-29 05:06] LABS: FINE GRANULAR CAST 0-3 /LPF (NEGATIVE)
[2020-09-29 05:08] LABS: BACTERIA,URINE FEW /HPF (Neg); RBC,URINE 0-2 /HPF (0-2)
[2020-09-29 05:13] VITALS: BP 96/66
[2020-09-29 07:51] LABS: ANISOCYTOSIS 2+; MICROCYTOSIS 1+; PLATELET ESTIMATE DECREASED
[2020-09-29 07:52] LABS: ACANTHOCYTES FEW; ELLIPTOCYTES 1+; HYPOCHROMASIA 1+; POLYCHROMASIA FEW
== END 2020-09-29 05:34 | disposition home or self-care (01) ==
LOC: ER 01:18
DX: L03.116 Cellulitis of left lower limb (principal); N17.9 Acute kidney failure, unspecified; I48.91 Unspecified atrial fibrillation; I11.0 Hypertensive heart disease with heart failure; I50.9 Heart failure, unspecified; E78.00 Pure hypercholesterolemia, unspecified; E11.9 Type 2 diabetes mellitus without complications; F17.200 Nicotine dependence, unspecified, uncomplicated; F15.90 Other stimulant use, unspecified, uncomplicated; Z87.11 Personal history of peptic ulcer disease; Z86.2 Personal history of diseases of the blood and blood-forming organs and certain disorders involving the immune mechanism; Z72.89 Other problems related to lifestyle; Z88.8 Allergy status to other drugs, medicaments and biological substances; Z79.2 Long term (current) use of antibiotics; Z79.899 Other long term (current) drug therapy
CPT/HCPCS: 36415; 80053; 81001; 83880; 85008; 85025; 87088; 99285